=== PATIENT | male | born 1970 | race Caucasian/White ===

== ENCOUNTER 2017-07-20 23:57 | Emergency (ER) | payer SELFPAY ==
[~2017-07-20] VITALS: Ht 180.3 cm; Wt 108.0 kg
[2017-07-21 00:03] VITALS: BP 199/98; PULSE 119; RESP 18; TEMP 99.1; O2SAT 95
--- NOTE | 2017-07-21 00:39 | PD ---
HPI Chief Complaint: Respiratory Symptoms Time Seen by Provider: 00:16 Travel History International Travel<30 days: No Contact w/Intl Traveler<30days: No Traveled to known affect area: No History of Present Illness HPI Patient is a 47-year-old male who was lying in bed tonight suddenly awoke short of breath felt pounding in his chest felt he could not catch his breath heaviness throughout his lungs he used his roommate (who was accompanying him to the ER) Diskus Advair as well as Atrovent pump without relief of his symptoms. Patient is in the ER he is tachycardic to 120 his blood pressure is 195/100 he denies hypertension. He has a history of hyperthyroidism for which he is not taking meds he also reports a history of hypercholesterolemia he has not seen another doctor for this the symptoms began just prior to arrival. PFSH Past Medical History Seizures: Yes Thyroid Disease: Yes (HYPER) Triglycerides - High: Yes Tetanus Vaccination: > 5 Years Influenza Vaccination: No Social History Alcohol Use: No Tobacco Use: No Substance Use: No Allergies-Medications (Allergen,Severity, Reaction): Coded Allergies: No Known Allergies (Unverified , 07/21/17) Reported Meds & Prescriptions Reported Meds & Active Scripts Active Tegretol (Carbamazepine) 200 Mg Tab 200 Mg PO BID Ativan (Lorazepam) 0.5 Mg Tab 0.5 Mg PO Q6H PRN Review of Systems Except as stated in HPI: all other systems reviewed are Neg Physical Exam Narrative GENERAL: Tachycardic awake alert seems slightly anxious slightly tachypnea SKIN: Warm and dry. HEAD: Atraumatic. Normocephalic. EYES: Pupils equal and round. No scleral icterus. No injection or drainage. ENT: No nasal bleeding or discharge. Mucous membranes pink and moist. NECK: Trachea midline. No JVD. CARDIOVASCULAR: Regular rate and rhythm. Tachycardic to a rate of 117 EKG is normal sinus rhythm at a rate of 111 RESPIRATORY: No accessory muscle use. Clear to auscultation. Breath sounds equal bilaterally. GASTROINTESTINAL: Abdomen soft, non-tender, nondistended. Hepatic and splenic margins not palpable. MUSCULOSKELETAL: Extremities without clubbing, cyanosis, or edema. No obvious deformities. NEUROLOGICAL: Awake and alert. No obvious cranial nerve deficits. Motor grossly within normal limits. Five out of 5 muscle strength in the arms and legs. Normal speech. PSYCHIATRIC: Appropriate mood and affect; insight and judgment normal. Data Data Last Documented VS Vital Signs Date Time Temp Pulse Resp B/P (MAP) Pulse Ox O2 Delivery O2 Flow Rate FiO2 07/21/17 02:43 07/21/17 02:23 109 18 94 Room Air 07/21/17 00:55 21 07/21/17 00:03 99.1 Orders Orders Complete Blood Count With Diff (07/21/17 00:34) Comprehensive Metabolic Panel (07/21/17 00:34) Ckmb (Isoenzyme) Profile (07/21/17 00:34) Troponin I (07/21/17 00:34) Lipase (07/21/17 00:34) D-Dimer (07/21/17 00:34) Chest, Pa & Lat (07/21/17 00:34) Lorazepam Inj (Ativan Inj) (07/21/17 00:45) Ipratropium Neb (Atrovent Neb) (07/21/17 00:45) CKMB (07/21/17 00:45) CKMB% (07/21/17 00:45) Ct Pulmonary Angiogram (07/21/17 ) Iohexol 350 Inj (Omnipaque 350 Inj) (07/21/17 02:14) Ed Discharge Order (07/21/17 02:50) Electrocardiogram (07/21/17 00:24) Labs Laboratory Tests Test 07/21/17 00:45 White Blood Count 7.8 TH/MM3 Red Blood Count 4.88 MIL/MM3 Hemoglobin 15.1 GM/DL Hematocrit 43.7 % Mean Corpuscular Volume 89.5 FL Mean Corpuscular Hemoglobin 30.9 PG Mean Corpuscular Hemoglobin Concent 34.5 % Red Cell Distribution Width 13.2 % Platelet Count 244 TH/MM3 Mean Platelet Volume 8.9 FL Neutrophils (%) (Auto) 61.5 % Lymphocytes (%) (Auto) 29.0 % Monocytes (%) (Auto) 7.9 % Eosinophils (%) (Auto) 1.4 % Basophils (%) (Auto) 0.2 % Neutrophils # (Auto) 4.8 TH/MM3 Lymphocytes # (Auto) 2.3 TH/MM3 Monocytes # (Auto) 0.6 TH/MM3 Eosinophils # (Auto) 0.1 TH/MM3 Basophils # (Auto) 0.0 TH/MM3 CBC Comment DIFF FINAL Differential Comment D-Dimer Quantitative (PE/DVT) 0.22 MG/L FEU Blood Urea Nitrogen 19 MG/DL Creatinine 1.06 MG/DL Random Glucose 307 MG/DL Total Protein 7.8 GM/DL Albumin 4.0 GM/DL Calcium Level 8.4 MG/DL Alkaline Phosphatase 80 U/L Aspartate Amino Transf (AST/SGOT) 43 U/L Alanine Aminotransferase (ALT/SGPT) 60 U/L Total Bilirubin 0.5 MG/DL Sodium Level 135 MEQ/L Potassium Level 3.7 MEQ/L Chloride Level 99 MEQ/L Carbon Dioxide Level 26.9 MEQ/L Anion Gap 9 MEQ/L Estimat Glomerular Filtration Rate 74 ML/MIN Total Creatine Kinase 197 U/L Creatine Kinase MB 1.2 NG/ML Troponin I LESS THAN 0.02 NG/ML Lipase 375 U/L [facility] Medical Decision Making Medical Screen Exam Complete: Yes Emergency Medical Condition: Yes Differential Diagnosis Anxiety versus PE versus cardiac ischemia versus pneumonia Narrative Course CTA of chest is negative D dimer=negative EKG is normal sinus rhythm patient is given Ativan and Atrovent to help him breathe better there is no signs of any bronchitis on his CT there is no PE on the CT troponin is negative he is safe for discharge I will write him a prescription for ATIVAN follow-up as an outpatient Diagnosis Primary Impression: Shortness of breath Additional Impression: Anxiety Patient Instructions: General Instructions, Shortness of Breath (ED) Scripts Carbamazepine (Tegretol) 200 Mg Tab 200 MG PO BID, #30 TAB 0 Refills Prov: Will Cornejo MD 07/21/17 Lorazepam (Ativan) 0.5 Mg Tab 0.5 MG PO Q6H Y for ANXIETY AND/OR AGITATION, #15 TAB 0 Refills Prov: Will Cornejo MD 07/21/17 Disposition: DISCHARGE HOME Condition: Good Will Cornejo MD Jul 21, 2017 00:39
[2017-07-21] MEDS ORDERED: RESP: IPRATROPIUM 0.5 MG/2.5 ML NEB NEB ONE (00:45)
[2017-07-21] MEDS ORDERED: LORazepam 2 MG/ML VIAL IV PUSH ONE (00:45)
[2017-07-21 00:54] LABS: AUTOMATED NEUTROPHIL # 4.8 TH/MM3 (1.8-7.7); BASOPHIL % 0.2 % (0.0-2.0); EOSINOPHIL # 0.1 TH/MM3 (0-0.4); EOSINOPHIL % 1.4 % (0.0-4.0); HEMATOCRIT 43.7 % (39.0-51.0); HEMOGLOBIN 15.1 GM/DL (13.0-17.0); LYMPHOCYTE # 2.3 TH/MM3 (1.0-4.8); MEAN CELL VOLUME 89.5 FL (80.0-100.0); MEAN CORPUSCULAR HEMOGLOBIN 30.9 PG (27.0-34.0); MEAN CORPUSCULAR HGB CONC 34.5 % (32.0-36.0); MEAN PLATELET VOLUME 8.9 FL (7.0-11.0); MONO % 7.9 % (0.0-8.0); MONOCYTE # 0.6 TH/MM3 (0-0.9); NEUT % 61.5 % (16.0-70.0); PLATELET COUNT 244 TH/MM3 (150-450); RED BLOOD COUNT 4.88 MIL/MM3 (4.50-5.90); RED CELL DISTRIBUTION WIDTH 13.2 % (11.6-17.2); WHITE BLOOD COUNT 7.8 TH/MM3 (4.0-11.0)
[2017-07-21 00:55] VITALS: O2SAT 95
--- NOTE | 2017-07-21 01:04 | RADRPT ---
EXAM DATE/TIME: 07/21/2017 00:47 [facility] COMPARISON: No previous studies available for comparison. INDICATIONS : Chest pain and shortness of breath MEDICAL HISTORY : Hypercholesterolemia. SURGICAL HISTORY : Rotator cuff ENCOUNTER: Initial ACUITY: 2 days PAIN SCORE: 8/10 LOCATION: Bilateral chest FINDINGS: PA and lateral views of the chest. The lungs are clear. Cardiomediastinal silhouette within normal li mits. No evidence of pleural effusion or pneumothorax. CONCLUSION: No acute cardiopulmonary disease identified. Ortega Magaña MD on July 21, 2017 at 1:01 Board Certified Radiologist. This report was verified electronically.
[2017-07-21 01:25] LABS: ALKALINE PHOSPHATASE 80 U/L (45-117); ALT (GPT) 60 U/L (12-78); AST (GOT) 43 U/L (15-37); BICARBONATE 26.9 MEQ/L (21.0-32.0); BLOOD UREA NITROGEN 19 MG/DL (7-18); CALCIUM 8.4 MG/DL (8.5-10.1); CHLORIDE 99 MEQ/L (98-107); CREATININE 1.06 MG/DL (0.60-1.30); GLOMERULAR FILTRATION RATE 74 ML/MIN (>89); GLUCOSE,RANDOM 307 MG/DL (74-106); LIPASE 375 U/L (73-393); SODIUM (NA) 135 MEQ/L (136-145); TOTAL BILIRUBIN ADULT 0.5 MG/DL (0.2-1.0); TOTAL PROTEIN 7.8 GM/DL (6.4-8.2); TROPONIN I LESS THAN 0.02 NG/ML (0.02-0.05)
[2017-07-21] MEDS ORDERED: IOHEXOL 350 MG/ML 10 ML VIAL (for RAD DIAG) IVCONTRAST ONE (02:14)
[2017-07-21 02:23] VITALS: BP 147/84; PULSE 109; RESP 18; O2SAT 94
--- NOTE | 2017-07-21 02:31 | RADRPT ---
EXAM DATE/TIME: 07/21/2017 02:01 [facility] COMPARISON: No previous studies available for comparison. INDICATIONS : Shortness of breath. IV CONTRAST: 75 cc Omnipaque 350 (iohexol) IV RADIATION DOSE: 10.89 CTDIvol (mGy) MEDICAL HISTORY : Diabetes mellitus type 2. SURGICAL HISTORY : None. ENCOUNTER: Initial ACUITY: 1 day PAIN SCALE: 0/10 LOCATION: chest TECHNIQUE: Volumetric scanning of the chest was performed using a pulmonary embolism protocol MIP images were re constructed. Using automated exposure control and adjustment of the mA and/or kV according to patien t size, radiation dose was kept as low as reasonably achievable to obtain optimal diagnostic quality images. DICOM format image data is available electronically for review and comparison. Follow-up recommendations for detected pulmonary nodules are based at a minimum on nodule size and pa tient risk factors according to Fleischner Society Guidelines. FINDINGS: PULMONARY ARTERIES: No filling defects are seen in the pulmonary arteries through the segmental level. LUNGS: There is no consolidation or pneumothorax . No concerning pulmonary nodule is visualized. PLEURAE: There is no pleural thickening or pleural effusion. MEDIASTINUM: There is good visualization of the great vessels of the middle mediastinum. No evidence of mediastin al or hilar adenopathy/mass. MUSCULOSKELETAL: Within normal limits for patient age. MISCELLANEOUS: The visualized upper abdominal organs demonstrate no acute abnormality. CONCLUSION: No evidence of pulmonary embolus. Lungs are clear. Ortega Magaña MD on July 21, 2017 at 2:20 Board Certified Radiologist. This report was verified electronically.
[2017-07-21] MEDS ORDERED: LORA-392 PO (02:44)
[2017-07-21] MEDS ORDERED: TEGR200T PO (02:49)
--- NOTE | 2017-07-21 13:23 | EKG ---
Date Performed: 07/21/2017 Time Performed: 00:24:06 PTAGE: 47 years EKG: SINUS TACHYCARDIA ABNORMAL RHYTHM ECG NO PREVIOUS TRACING DOCTOR: Mike Monsalve Interpretating Date/Time 07/21/2017 13:22:02
== END 2017-07-21 03:03 | disposition home or self-care (01) ==
LOC: NEPE 23:57
DX: R06.02 Shortness of breath (principal); F41.9 Anxiety disorder, unspecified
CPT/HCPCS: 71046; 71275; 80053; 82550; 82552; 83690; 84484; 85025; 85379; 93005; 94664; 96374; 99285; J2060; J7644; Q9967

== ENCOUNTER 2017-08-01 22:45 | Emergency (ER) | payer SELFPAY ==
[~2017-08-01] VITALS: Ht 180.3 cm; Wt 106.5 kg
[~2017-08-01 22:45] MED LIST: LORA-392 PO; TEGR200T PO
[2017-08-01 22:46] VITALS: BP 204/94; PULSE 126; RESP 20; TEMP 99.8; O2SAT 97
[2017-08-01 23:02] VITALS: BP 197/100; PULSE 117; RESP 20; TEMP 98.4; O2SAT 97
[2017-08-01] MEDS ORDERED: LORazepam 0.5 MG TAB PO ONE (23:30)
[2017-08-01] MEDS ORDERED: METOPROLOL TARTRATE 25 MG TAB PO ONE (23:45)
--- NOTE | 2017-08-01 23:55 | PD ---
HPI Chief Complaint: Respiratory Distress Time Seen by Provider: 23:19 Travel History International Travel<30 days: No Contact w/Intl Traveler<30days: No Traveled to known affect area: No History of Present Illness HPI Patient complained of tachycardia shortness of breath awakening her from sleep .. Patient Was in our ER for the exact same complaint less than a week ago he was treated with Ativan he was given a full cardiac and ulnar workup he had a PE study that showed no PE. He did not follow-up as he has no insurance at this time and he is back with similar complaint I will give him Ativan by mouth in the total by mouth and evaluate labs. Patient denies chest pain shortness of breath. Denies diaphoresis thinks it is could be acid reflux wakes him up in the morning and then he has a stressful reaction and his pressure gets very high. Pressure is 229/110 he has no medical care at this time says he doesn't have the minute money for his medications he's been Tegretol as well as other meds last times in the ER I gave him a prescription for Ativan for the anxiety related to this panic at night as well as Tegretol. He did not follow-up with the [facility] Past Medical History Anxiety: Yes Cardiovascular Problems: Yes (HTN) Hypertension: Yes Respiratory: Yes (hx of SOB) Seizures: Yes Thyroid Disease: Yes (HYPER) Triglycerides - High: Yes Tetanus Vaccination: > 5 Years Influenza Vaccination: No Social History Alcohol Use: No Tobacco Use: No Substance Use: No Allergies-Medications (Allergen,Severity, Reaction): Coded Allergies: No Known Allergies (Unverified , 07/21/17) Reported Meds & Prescriptions Reported Meds & Active Scripts Active Caretouch Bp Monitor (Blood Pressure Test Kit-Large) 1 Each Kit % .XX Clonidine (Clonidine HCl) 0.1 Mg Tab 0.1 Mg PO BID Metoprolol Tartrate 25 Mg Tab 25 Mg PO DAILY Lisinopril 10 Mg Tab 10 Mg PO DAILY Ativan (Lorazepam) 0.5 Mg Tab 0.5 Mg PO Q6H PRN Review of Systems Except as stated in HPI: all other systems reviewed are Neg Cardiovascular: Positive: Palpitations Physical Exam Narrative GENERAL: slightly anxiuos affect SKIN: Warm and dry. HEAD: Atraumatic. Normocephalic. EYES: Pupils equal and round. No scleral icterus. No injection or drainage. ENT: No nasal bleeding or discharge. Mucous membranes pink and moist. NECK: Trachea midline. No JVD. CARDIOVASCULAR: Regular rate and rhythm. 229/100 SBp RESPIRATORY: No accessory muscle use. Clear to auscultation. Breath sounds equal bilaterally. GASTROINTESTINAL: Abdomen soft, non-tender, nondistended. Hepatic and splenic margins not palpable. MUSCULOSKELETAL: Extremities without clubbing, cyanosis, or edema. No obvious deformities. NEUROLOGICAL: Awake and alert. No obvious cranial nerve deficits. Motor grossly within normal limits. Five out of 5 muscle strength in the arms and legs. Normal speech. PSYCHIATRIC: Appropriate mood and affect; insight and judgment normal. Data Data Last Documented VS Vital Signs Date Time Temp Pulse Resp B/P (MAP) Pulse Ox O2 Delivery O2 Flow Rate FiO2 08/02/17 04:52 99 20 95 08/02/17 04:42 Room Air 08/01/17 23:02 98.4 Orders Orders Lorazepam (Ativan) (08/01/17 23:30) Metoprolol Tartrate (Lopressor) (08/01/17 23:45) Lisinopril (Prinivil) (08/02/17 01:30) Clonidine (Catapres) (08/02/17 02:00) Ed Discharge Order (08/02/17 04:55) MDM Medical Decision Making Medical Screen Exam Complete: Yes Emergency Medical Condition: Yes Differential Diagnosis GERD induce panic inducing hypertension versus essential hypertension versus caffeine induced hypertension versus panic attack Narrative Course I did a full workup on this patient less than 2 weeks ago with a PE study as well as troponin serial troponins EKGs I will ruled out all the causes for his symptoms better smell similar and presenting the same way this time I treat his blood pressure only a given metoprolol 25 mg clonidine 0.1 mg and lisinopril 20 and observe him for 4 hours his pressure comes down to 163/80. I discharge him with a blood pressure cuff monitor as well as the same scrips I gave him in the ER metoprolol 25 mg once day lisinopril 10 mg once a day and clonidine 0.1 mg twice a day blood pressure cuff is written as well and told to closely monitor his pressure if it is lower then 110 to hold the metoprolol any problems to return to the ER Diagnosis Primary Impression: Hypertension Qualified Codes: I10 - Essential (primary) hypertension Patient Instructions: Chronic Hypertension (ED), General Instructions Scripts Blood Pressure Test Kit-Large (Glycosantouch Bp Monitor) 1 Each Kit % .XX for Blood Pressure Management, #1 1 Refill Prov: Will Cornejo MD 08/02/17 Clonidine (Clonidine) 0.1 Mg Tab 0.1 MG PO BID for Blood Pressure Management, #60 TAB 0 Refills Prov: Will Cornejo MD 08/02/17 Metoprolol Tartrate (Metoprolol Tartrate) 25 Mg Tab 25 MG PO DAILY, #30 TAB 0 Refills Prov: Will Cornejo MD 08/02/17 Lisinopril (Lisinopril) 10 Mg Tab 10 MG PO DAILY, #30 TAB 0 Refills Prov: Will Cornejo MD 08/02/17 Disposition: 01 DISCHARGE HOME Condition: Good Will Cornejo MD Aug 01, 2017 23:55
[2017-08-01 23:56] VITALS: BP 187/91; PULSE 109; RESP 20; O2SAT 96
[2017-08-02] MEDS ORDERED: LISINOPRIL 20 MG TAB PO ONE (01:30)
[2017-08-02 01:56] VITALS: BP 213/95; PULSE 102; RESP 18; O2SAT 95
[2017-08-02] MEDS ORDERED: cloNIDine HCL 0.1 MG TAB PO ONE (02:00)
[2017-08-02 03:16] VITALS: BP 179/84; PULSE 99; RESP 18; O2SAT 99
[2017-08-02 04:42] VITALS: BP 163/84; PULSE 98; RESP 18; O2SAT 95
[2017-08-02] MEDS ORDERED: LISI10TA3 PO (04:50)
[2017-08-02] MEDS ORDERED: METO25TA3 PO (04:50)
[2017-08-02] MEDS ORDERED: CLON0.1T PO (04:50)
[2017-08-02] MEDS ORDERED: [UNRECOGNIZED DRUG - CODE] (04:53)
== END 2017-08-02 04:52 | disposition home or self-care (01) ==
LOC: NEPC 22:45
DX: I10 Essential (primary) hypertension (principal); R00.0 Tachycardia, unspecified; R06.02 Shortness of breath; F41.9 Anxiety disorder, unspecified; R56.9 Unspecified convulsions; E05.90 Thyrotoxicosis, unspecified without thyrotoxic crisis or storm; Z79.899 Other long term (current) drug therapy
CPT/HCPCS: 99284

== ENCOUNTER 2017-08-28 04:59 | Emergency (ER) | payer SELFPAY ==
[~2017-08-28] VITALS: Ht 182.9 cm; Wt 99.0 kg
[~2017-08-28 04:59] MED LIST changes: +CLON0.1T PO; +LISI10TA3 PO; +METO25TA3 PO; -TEGR200T PO; +[UNRECOGNIZED DRUG - CODE]
[2017-08-28 05:01] VITALS: BP 142/80; PULSE 108; RESP 20; TEMP 98.5; O2SAT 96
[2017-08-28] MEDS ORDERED: ATOR10TA15 PO (05:16)
[2017-08-28] MEDS ORDERED: CARB200T PO (05:16)
[2017-08-28 05:38] VITALS: RESP 20
[2017-08-28 05:45] LABS: AUTOMATED NEUTROPHIL # 6.5 TH/MM3 (1.8-7.7); BASOPHIL % 0.4 % (0.0-2.0); EOSINOPHIL # 0.1 TH/MM3 (0-0.4); EOSINOPHIL % 0.8 % (0.0-4.0); HEMOGLOBIN 16.4 GM/DL (13.0-17.0); LYMPH % 18.3 % (9.0-44.0); LYMPHOCYTE # 1.6 TH/MM3 (1.0-4.8); MEAN CELL VOLUME 88.9 FL (80.0-100.0); MEAN CORPUSCULAR HEMOGLOBIN 31.1 PG (27.0-34.0); MEAN PLATELET VOLUME 8.5 FL (7.0-11.0); MONO % 7.4 % (0.0-8.0); MONOCYTE # 0.7 TH/MM3 (0-0.9); NEUT % 73.1 % (16.0-70.0); PLATELET COUNT 256 TH/MM3 (150-450); RED BLOOD COUNT 5.29 MIL/MM3 (4.50-5.90); RED CELL DISTRIBUTION WIDTH 13.2 % (11.6-17.2); WHITE BLOOD COUNT 8.9 TH/MM3 (4.0-11.0)
[2017-08-28] MEDS ORDERED: SODIUM CHLOR 0.9% 1000 ML INJ 1,000 ML IV ONE (05:45)
[2017-08-28 06:08] LABS: ALBUMIN 4.7 GM/DL (3.4-5.0); ALT (GPT) 72 U/L (12-78); AST (GOT) 27 U/L (15-37); BLOOD UREA NITROGEN 11 MG/DL (7-18); CALCIUM 9.7 MG/DL (8.5-10.1); CHLORIDE 100 MEQ/L (98-107); CREATININE 1.16 MG/DL (0.60-1.30); GLOMERULAR FILTRATION RATE 67 ML/MIN (>89); GLUCOSE,RANDOM 188 MG/DL (74-106); SODIUM (NA) 137 MEQ/L (136-145)
[2017-08-28 06:09] VITALS: BP 149/88; PULSE 106; RESP 20; TEMP 98; O2SAT 96
[2017-08-28 06:17] LABS: ALKALINE PHOSPHATASE 90 U/L (45-117); CARBAMAZEPINE (TEGRETOL) 3.8 MCG/ML (4.0-12.0); PROTHROMBIN TIME - PATIENT 10.2 SEC (9.8-11.6); TOTAL BILIRUBIN ADULT 0.4 MG/DL (0.2-1.0); TOTAL PROTEIN 8.8 GM/DL (6.4-8.2); TROPONIN I LESS THAN 0.02 NG/ML (0.02-0.05)
--- NOTE | 2017-08-28 06:29 | RADRPT ---
EXAM DATE/TIME: 08/28/2017 06:07 [facility] COMPARISON: No previous studies available for comparison. INDICATIONS : Short of breath. MEDICAL HISTORY : Hypercholesterolemia. SURGICAL HISTORY : None. ENCOUNTER: Initial ACUITY: 1 day PAIN SCORE: 0/10 LOCATION: Bilateral chest FINDINGS: A single view of the chest demonstrates the lungs to be symmetrically aerated without evidence of mas s, infiltrate or effusion. The cardiomediastinal contours are unremarkable. Osseous structures are intact. CONCLUSION: No acute disease. Serjio Lucia MD on August 28, 2017 at 6:28 Board Certified Radiologist. This report was verified electronically.
--- NOTE | 2017-08-28 06:59 | PD ---
HPI Chief Complaint: Cardiac Complaint Time Seen by Provider: 05:12 Travel History International Travel<30 days: No Contact w/Intl Traveler<30days: No Traveled to known affect area: No History of Present Illness HPI The patient is a 47 year old male who presents to the [facility] emergency department with a history of developing a sensation of palpitations, heart racing just after eating at midnight today. The patient reports having an associated chest pressure. The patient reports that he has had similar symptoms in the past, however they were attributed in the past to anxiety. He reports that he does not feel anxious at this time. Interestingly, the patient does have a history of hyperthyroid disorder that he has not been treating for the last 3 years up until 3 weeks ago when he restarted methimazole. He had laboratory studies done, however he has not received the results. He is followed at the [facility]. In addition to this, the patient has a history of hypertension. The patient reports that he was recently started on antihypertensive medications, however at the same time he also has gone on a diet and exercise program and has lost 15 pounds. The patient has been seen in the emergency department on 2 occasions related to tachycardia, chest pressure, shortness of breath by Dr. Cornejo. On the initial evaluation the patient underwent a cardiac workup and a CTA to rule out PE. CTA was negative for PE, cardiac enzymes have been normal. Otherwise on review of systems, the patient denies having any known recent fevers, cough or congestion,neck pain, current shortness of breath, abdominal pain, vomiting, diarrhea, urinary symptoms, or neurologic symptoms. [facility] Past Medical History Narrative Medical The patient's past medical history is significant for hyperthyroid disorder, anxiety disorder, hypertension, seizure disorder, hyperlipidemia. On review of the patient's electronic medical record the patient's blood sugar was 307. He denies being made aware of this. Anxiety: Yes Cardiovascular Problems: Yes (HTN) Diminished Hearing: No Hypertension: Yes Respiratory: Yes (hx of SOB) Immunizations Current: Yes Seizures: Yes Thyroid Disease: Yes (HYPER) Triglycerides - High: Yes Tetanus Vaccination: Unknown Influenza Vaccination: No Past Surgical History Narrative Surgical The patient's past surgical history is reportedly none. Social History Alcohol Use: No Tobacco Use: No Substance Use: No Allergies-Medications (Allergen,Severity, Reaction): Coded Allergies: No Known Allergies (Unverified , 07/21/17) Reported Meds & Prescriptions Reported Meds & Active Scripts Active C[place] Bp Monitor (Blood Pressure Test Kit-Large) 1 Each Kit % .XX Clonidine (Clonidine HCl) 0.1 Mg Tab 0.1 Mg PO BID Metoprolol Tartrate 25 Mg Tab 25 Mg PO DAILY Lisinopril 10 Mg Tab 10 Mg PO DAILY Ativan (Lorazepam) 0.5 Mg Tab 0.5 Mg PO Q6H PRN Reported Carbamazepine 200 Mg Tab 200 Mg PO BID Atorvastatin (Atorvastatin Calcium) 10 Mg Tab 10 Mg PO HS Review of Systems Except as stated in HPI: all other systems reviewed are Neg General / Constitutional: No: Fever Eyes: No: Visual changes HENT: No: Headaches Cardiovascular: Positive: Chest Pain or Discomfort, Palpitations, Tachycardia ( Chest pressure) Respiratory: No: Shortness of Breath Gastrointestinal: No: Nausea, Vomiting, Diarrhea, Abdominal Pain Genitourinary: No: Dysuria Musculoskeletal: No: Pain Skin: No Rash Neurologic: No: Weakness, Focal Abnormalities, Change in Mentation, Slurred Speech, Sensory Disturbance Psychiatric: No: Depression Endocrine: No: Polydipsia Hematologic/Lymphatic: No: Easy Bruising Physical Exam Narrative General: The patient is a well-developed well-nourished male, anxious appearing on examination, tachycardic, pressured speech. Head and Neck exam: Head is normocephalic atraumatic. Eyes: EOMI, pupils are equal round and reactive to light. Nose: Midline septum with pink mucous membranes Mouth: Dentition unremarkable. Moist mucus membranes. Posterior oropharynx is not erythematous. No tonsillar hypertrophy. Uvula midline. Airway patent. Neck: No palpable lymphadenopathy. No nuchal rigidity. No thyromegaly. Cardiovascular: Sinus tachycardia in the low 100 without murmurs, gallops, or rubs. No pulse deficit to the extremities on simultaneous auscultation and palpation of his radial artery. Lungs: Clear to auscultation bilaterally. No wheezes, rhonchi, or rales. Abdomen: Soft, without tenderness to palpation in all 4 quadrants of the abdomen. No guarding, rebound, or rigidity. Normal bowel sounds are audible. No tenderness on palpation of McBurney's point. Negative Brewer sign. Extremities: No clubbing, cyanosis, or edema. 2+ pulses in all 4 extremities. No calf tenderness on palpation. Negative Homans sign. No palpable cords. Back: No spinous process tenderness to palpation. No costovertebral angle tenderness to palpation. Neurologic Exam: Grossly nonfocal. Skin Exam: No rash noted. Intact skin that is warm and dry. Data Data Last Documented VS Vital Signs Date Time Temp Pulse Resp B/P (MAP) Pulse Ox O2 Delivery O2 Flow Rate FiO2 08/28/17 06:09 98.0 106 20 149/88 (108) 96 Room Air Orders Orders Electrocardiogram (08/28/17 05:27) Complete Blood Count With Diff (08/28/17 05:27) Comprehensive Metabolic Panel (08/28/17 05:27) Creatine Kinase (Cpk) (08/28/17 05:27) Ckmb (Isoenzyme) Profile (08/28/17 05:27) Troponin I (08/28/17 05:27) Prothrombin Time / Inr (Pt) (08/28/17 05:27) Act Partial Throm Time (Ptt) (08/28/17 05:27) Lipase (08/28/17 05:27) Urinalysis - C+S If Indicated (08/28/17 05:27) Magnesium (Mg) (08/28/17 05:27) Carbamazepine (Tegretol) (08/28/17 05:27) Thyroid Stimulating Hormone (08/28/17 05:27) Chest, Single Ap (08/28/17 05:27) Iv Access Insert/Monitor (08/28/17 05:27) Ecg Monitoring (08/28/17 05:27) Oximetry (08/28/17 05:27) Blood Glucose (08/28/17 05:27) Sodium Chlor 0.9% 1000 Ml Inj (Ns 1000 M (08/28/17 05:45) Labs Laboratory Tests Test 08/28/17 05:35 White Blood Count 8.9 TH/MM3 Red Blood Count 5.29 MIL/MM3 Hemoglobin 16.4 GM/DL Hematocrit 47.0 % Mean Corpuscular Volume 88.9 FL Mean Corpuscular Hemoglobin 31.1 PG Mean Corpuscular Hemoglobin Concent 35.0 % Red Cell Distribution Width 13.2 % Platelet Count 256 TH/MM3 Mean Platelet Volume 8.5 FL Neutrophils (%) (Auto) 73.1 % Lymphocytes (%) (Auto) 18.3 % Monocytes (%) (Auto) 7.4 % Eosinophils (%) (Auto) 0.8 % Basophils (%) (Auto) 0.4 % Neutrophils # (Auto) 6.5 TH/MM3 Lymphocytes # (Auto) 1.6 TH/MM3 Monocytes # (Auto) 0.7 TH/MM3 Eosinophils # (Auto) 0.1 TH/MM3 Basophils # (Auto) 0.0 TH/MM3 CBC Comment DIFF FINAL Differential Comment Prothrombin Time 10.2 SEC Prothromb Time International Ratio 1.0 RATIO Activated Partial Thromboplast Time 33.2 SEC Blood Urea Nitrogen 11 MG/DL Creatinine 1.16 MG/DL Random Glucose 188 MG/DL Total Protein 8.8 GM/DL Albumin 4.7 GM/DL Calcium Level 9.7 MG/DL Magnesium Level 2.0 MG/DL Alkaline Phosphatase 90 U/L Aspartate Amino Transf (AST/SGOT) 27 U/L Alanine Aminotransferase (ALT/SGPT) 72 U/L Total Bilirubin 0.4 MG/DL Sodium Level 137 MEQ/L Potassium Level 3.8 MEQ/L Chloride Level 100 MEQ/L Carbon Dioxide Level 28.0 MEQ/L Anion Gap 9 MEQ/L Estimat Glomerular Filtration Rate 67 ML/MIN Total Creatine Kinase 80 U/L Troponin I LESS THAN 0.02 NG/ML Lipase 430 U/L Thyroid Stimulating Hormone 3rd Gen 1.380 uIU/ML Carbamazepine (Tegretol) Level 3.8 MCG/ML MDM Medical Decision Making Medical Screen Exam Complete: Yes Emergency Medical Condition: Yes Medical Record Reviewed: Yes Differential Diagnosis Hyperthyroidism, versus anxiety disorder, versus pneumonia, versus dehydration from undiagnosed diabetes and hyperglycemia Narrative Course During the course of the patient's emergency department visit, the patient's history, examination, and differential diagnosis were reviewed with the patient. The patient was placed on a branch general manager with oximetry and frequent blood pressure monitoring. The patient had IV access obtained and blood work sent for analysis. The patient's electronic medical record was reviewed and the patient's blood sugar when he was last seen in the emergency department and had laboratory studies done was 307. The patient's blood sugar was taken at this time and was noted to be 193. The patient's symptoms are consistent with the diagnosis of diabetes as he does report having polyuria and polydipsia, however he reports that this is improved since a 15 pound weight loss. The patient currently has a primary care physician at the [facility]. He will follow-up with them regarding this. The patient was initially provided normal saline 1 L IV fluid bolus The patient's laboratory studies were reviewed and remarkable for a white count of 8.9, hemoglobin 16.4, platelets 256 with 73.1 neutrophils, CMP is remarkable for a glucose of 188, cardiac enzymes within normal limits, lipase 430, TSH 1.38 , PT 10.2, PTT 33.2, Tegretol level three-point Radiology studies were reviewed and remarkable for chest x-ray that shows no acute cardiopulmonary disease. The patient reports concern about continuing his antihypertensive medication, the patient was instructed that he should continue his blood pressure medication until he comes up with the plan for discontinuing it after it is closely monitored with his primary care physician. Regarding the patient's hyperglycemia, the patient was instructed that he would meet criteria for diabetes based on his blood sugar of 307 when it was previously evaluated. He will follow-up closely with his primary care physician regarding this. The patient's examination is consistent with anxiety. The patient is on Ativan as needed. He was instructed to continue this. The patient is resting comfortably and feels better, is alert and in no distress. The patient's results and examination findings were discussed with the patient. The repeat examination is unremarkable and benign. The history, exam, diagnostic testing, and current condition do not suggest any significant pathology to warrant further testing, continued ED treatment, admission, or surgical evaluation at this point. The vital signs have been stable. The patient does not have uncontrollable pain, intractable vomiting, or other significant symptoms. The patient's condition is stable and appropriate for discharge. The patient will pursue further outpatient evaluation with a primary care physician or other designated or consulting physician as indicated in the discharge instructions. The patient expressed understanding and was agreeable with this plan. Diagnosis Primary Impression: Palpitations Additional Impression: Diabetes mellitus Qualified Codes: E11.65 - Type 2 diabetes mellitus with hyperglycemia Referrals: [facility] 2 days Patient Instructions: Diabetic Hyperglycemia (ED), General Instructions, Heart Palpitations (ED) Med/Other Pt SpecificInfo: No Change to Meds Disposition: 01 DISCHARGE HOME Condition: Stable Charla Love MD Aug 28, 2017 06:59
[2017-08-28 07:29] VITALS: BP 124/76; PULSE 107; RESP 20; O2SAT 100
--- NOTE | 2017-08-28 19:17 | EKG ---
Date Performed: 08/28/2017 Time Performed: 05:17:17 PTAGE: 47 years EKG: SINUS TACHYCARDIA ABNORMAL RHYTHM ECG Since the prior tracing, there has been no significan t change PREVIOUS TRACING : 07/21/2017 00.24 DOCTOR: Bryce Cruz Interpretating Date/Time 08/28/2017 19:14:59
== END 2017-08-28 08:21 | disposition home or self-care (01) ==
LOC: NEPC 04:59
DX: R00.2 Palpitations (principal); E11.65 Type 2 diabetes mellitus with hyperglycemia; E05.90 Thyrotoxicosis, unspecified without thyrotoxic crisis or storm; E78.5 Hyperlipidemia, unspecified; E78.00 Pure hypercholesterolemia, unspecified; I10 Essential (primary) hypertension; F41.9 Anxiety disorder, unspecified; G40.909 Epilepsy, unspecified, not intractable, without status epilepticus; Z79.899 Other long term (current) drug therapy
CPT/HCPCS: 71045; 80053; 80156; 82550; 83690; 83735; 84443; 84484; 85025; 85610; 85730; 93005; 96360; 99285; J7030

== ENCOUNTER 2017-09-04 06:54 | Observation (INO) | payer SELFPAY ==
[~2017-09-04] VITALS: Ht 180.3 cm; Wt 93.0 kg
[2017-09-04] VITALS (7 sets, daily range): BP systolic 123–179; BP diastolic 58–83; PULSE 90–128; RESP 16–18; TEMP 98.3; O2SAT 97–99
[~2017-09-04 06:54] MED LIST changes: +ATOR10TA15 PO; +CARB200T PO
[2017-09-04] MEDS ORDERED: [UNRECOGNIZED DRUG - OTHER] PO (07:07)
[2017-09-04] MEDS ORDERED: METF1000 PO (07:07)
[2017-09-04] MEDS ORDERED: BUSP5TAB PO (07:07)
[2017-09-04] MEDS ORDERED: METHI10 PO (07:07)
[2017-09-04] MEDS ORDERED: ASPIRIN 325 MG TAB PO ONE (07:30)
[2017-09-04] MEDS ORDERED: SODIUM CHLORID 0.9% 500 ML INJ 500 ML IV ONE (07:30)
[2017-09-04] MEDS ORDERED: SODIUM CHLORIDE 0.9% FLUSH 10 ML FLUSH IVF PRN (07:30)
[2017-09-04] MEDS ORDERED: NITROGLYCERIN 0.4 MG SL 25 TABS/BTL SL ONE (07:30)
[2017-09-04 07:38] LABS: AUTOMATED NEUTROPHIL # 6.8 TH/MM3 (1.8-7.7); BASOPHIL # 0.1 TH/MM3 (0-0.2); BASOPHIL % 0.5 % (0.0-2.0); EOSINOPHIL # 0.1 TH/MM3 (0-0.4); EOSINOPHIL % 0.7 % (0.0-4.0); HEMATOCRIT 44.7 % (39.0-51.0); HEMOGLOBIN 15.6 GM/DL (13.0-17.0); LYMPH % 28.9 % (9.0-44.0); LYMPHOCYTE # 3.2 TH/MM3 (1.0-4.8); MEAN CORPUSCULAR HEMOGLOBIN 30.8 PG (27.0-34.0); MEAN PLATELET VOLUME 9.2 FL (7.0-11.0); MONO % 8.5 % (0.0-8.0); MONOCYTE # 0.9 TH/MM3 (0-0.9); NEUT % 61.4 % (16.0-70.0); PLATELET COUNT 305 TH/MM3 (150-450); RED BLOOD COUNT 5.08 MIL/MM3 (4.50-5.90)
--- NOTE | 2017-09-04 07:42 | RADRPT ---
EXAM DATE/TIME: 09/04/2017 07:27 [facility] COMPARISON: CHEST SINGLE AP, August 28, 2017, 6:07. INDICATIONS : Left side chest pains with left arm pain x3 days. MEDICAL HISTORY : Diabetes mellitus type I. SURGICAL HISTORY : None. ENCOUNTER: Initial ACUITY: 3 days PAIN SCORE: 3/10 LOCATION: Left chest FINDINGS: A single view of the chest demonstrates the lungs to be symmetrically aerated without evidence of mas s, infiltrate or effusion. The cardiomediastinal contours are unremarkable. Osseous structures are intact. CONCLUSION: 1. No acute cardiopulmonary disease. Alfredo Rogel MD on September 04, 2017 at 7:40 Board Certified Radiologist. This report was verified electronically.
[2017-09-04 07:50] LABS: INTERNATIONAL NORMALIZED RATIO 1.1 RATIO; PROTHROMBIN TIME - PATIENT 11.1 SEC (9.8-11.6)
[2017-09-04 07:53] LABS: ALT (GPT) 67 U/L (12-78)
[2017-09-04 07:54] LABS: ALBUMIN 4.5 GM/DL (3.4-5.0); AST (GOT) 38 U/L (15-37); BICARBONATE 23.5 MEQ/L (21.0-32.0); BLOOD UREA NITROGEN 11 MG/DL (7-18); CALCIUM 9.6 MG/DL (8.5-10.1); CHLORIDE 100 MEQ/L (98-107); CREATININE 1.13 MG/DL (0.60-1.30); GLOMERULAR FILTRATION RATE 69 ML/MIN (>89); GLUCOSE,RANDOM 112 MG/DL (74-106); SODIUM (NA) 136 MEQ/L (136-145)
[2017-09-04 07:58] LABS: ALKALINE PHOSPHATASE 92 U/L (45-117); TOTAL BILIRUBIN ADULT 0.5 MG/DL (0.2-1.0); TOTAL PROTEIN 8.6 GM/DL (6.4-8.2); TROPONIN I LESS THAN 0.02 NG/ML (0.02-0.05)
--- NOTE | 2017-09-04 08:20 | PD ---
HPI Chief Complaint: Chest Pain Time Seen by Provider: 07:18 Travel History International Travel<30 days: No Contact w/Intl Traveler<30days: No Traveled to known affect area: No History of Present Illness HPI 47-year-old male presents with chest pain over the past couple of days. He states that he is also feeling palpitations. He states he was given prescriptions to be placed back on his medications a month ago but he did not start them until 1 week ago. He states those were lisinopril and metoprolol. He states also over the past 4 days to lose weight he has been only drinking water. He states he is not having any other concurrent complaints at this time. He denies taking an aspirin. He states he has not had a stress test or heart workup that he recalls. He denies following with a intensive care medicine specialist. He denies modifying factors. Quality is pressure. Severity is moderate. He denies migration of the pain. Patient is a poor historian which limits history. PFSH Past Medical History Anxiety: Yes Cardiovascular Problems: Yes (HTN) Diabetes: Yes Patient Takes Glucophage: Yes Diminished Hearing: No Hypertension: Yes Respiratory: Yes (hx of SOB) Immunizations Current: Yes Seizures: Yes Thyroid Disease: Yes Triglycerides - High: Yes Influenza Vaccination: No Social History Alcohol Use: No Tobacco Use: No Substance Use: No Allergies-Medications (Allergen,Severity, Reaction): Coded Allergies: No Known Allergies (Unverified , 09/04/17) Reported Meds & Prescriptions Reported Meds & Active Scripts Active Metoprolol Tartrate 25 Mg Tab 25 Mg PO DAILY Lisinopril 10 Mg Tab 10 Mg PO DAILY Reported Buspirone (Buspirone HCl) 5 Mg Tab 5 Mg PO BID PRN l-Threonine (Threonine) 500 Mg Tab 100 Mg PO DAILY Metformin (Metformin HCl) 1,000 Mg Tab 1,000 Mg PO BIDPC Methimazole 10 Mg Tab 10 Mg PO DAILY Carbamazepine 200 Mg Tab 200 Mg PO BID Atorvastatin (Atorvastatin Calcium) 10 Mg Tab 10 Mg PO HS Review of Systems Except as stated in HPI: all other systems reviewed are Neg Physical Exam Narrative GENERAL: Anxious 47-year-old male SKIN: Focused skin assessment warm/dry. HEAD: Atraumatic. Normocephalic. EYES: Pupils equal and round. No scleral icterus. No injection or drainage. ENT: No nasal bleeding or discharge. Mucous membranes pink and moist. NECK: Trachea midline. No JVD. CARDIOVASCULAR: Regular rate and rhythm. RESPIRATORY: No accessory muscle use. Clear to auscultation. Breath sounds equal bilaterally. GASTROINTESTINAL: Abdomen soft, non-tender, nondistended. MUSCULOSKELETAL: No obvious deformities. No clubbing. No cyanosis. No edema. NEUROLOGICAL: Awake and alert. Motor grossly within normal limits. Normal speech. Data Data Last Documented VS Vital Signs Date Time Temp Pulse Resp B/P (MAP) Pulse Ox O2 Delivery O2 Flow Rate FiO2 09/04/17 07:48 108 134/63 (86) 123/58 (79) 09/04/17 07:47 17 98 Room Air Orders Orders Electrocardiogram (09/04/17 07:18) Ckmb (Isoenzyme) Profile (09/04/17 07:18) Complete Blood Count With Diff (09/04/17 07:18) Comprehensive Metabolic Panel (09/04/17 07:18) Magnesium (Mg) (09/04/17 07:18) Prothrombin Time / Inr (Pt) (09/04/17 07:18) Act Partial Throm Time (Ptt) (09/04/17 07:18) Troponin I (09/04/17 07:18) Lipase (09/04/17 07:18) Chest, Single Ap (09/04/17 07:18) Ecg Monitoring (09/04/17 07:18) Bilateral Bp Monitoring (09/04/17 07:18) Iv Access Insert/Monitor (09/04/17 07:18) Oximetry (09/04/17 07:18) Aspirin (Aspirin) (09/04/17 07:30) Sodium Chloride 0.9% Flush (Ns Flush) (09/04/17 07:30) Nitroglycerin Sl (Nitrostat Sl) (09/04/17 07:30) Sodium Chlorid 0.9% 500 Ml Inj (Ns 500 M (09/04/17 07:30) CKMB (09/04/17 07:15) CKMB% (09/04/17 07:15) Ct Abd/Pel W Iv Contrast(Rout) (09/04/17 ) Iohexol 350 Inj (Omnipaque 350 Inj) (09/04/17 09:21) Admit Order (Ed Use Only) (09/04/17 09:56) Labs Laboratory Tests Test 09/04/17 07:15 White Blood Count 11.0 TH/MM3 Red Blood Count 5.08 MIL/MM3 Hemoglobin 15.6 GM/DL Hematocrit 44.7 % Mean Corpuscular Volume 88.0 FL Mean Corpuscular Hemoglobin 30.8 PG Mean Corpuscular Hemoglobin Concent 35.0 % Red Cell Distribution Width 13.0 % Platelet Count 305 TH/MM3 Mean Platelet Volume 9.2 FL Neutrophils (%) (Auto) 61.4 % Lymphocytes (%) (Auto) 28.9 % Monocytes (%) (Auto) 8.5 % Eosinophils (%) (Auto) 0.7 % Basophils (%) (Auto) 0.5 % Neutrophils # (Auto) 6.8 TH/MM3 Lymphocytes # (Auto) 3.2 TH/MM3 Monocytes # (Auto) 0.9 TH/MM3 Eosinophils # (Auto) 0.1 TH/MM3 Basophils # (Auto) 0.1 TH/MM3 CBC Comment DIFF FINAL Differential Comment Prothrombin Time 11.1 SEC Prothromb Time International Ratio 1.1 RATIO Activated Partial Thromboplast Time 32.8 SEC Blood Urea Nitrogen 11 MG/DL Creatinine 1.13 MG/DL Random Glucose 112 MG/DL Total Protein 8.6 GM/DL Albumin 4.5 GM/DL Calcium Level 9.6 MG/DL Magnesium Level 2.0 MG/DL Alkaline Phosphatase 92 U/L Aspartate Amino Transf (AST/SGOT) 38 U/L Alanine Aminotransferase (ALT/SGPT) 67 U/L Total Bilirubin 0.5 MG/DL Sodium Level 136 MEQ/L Potassium Level 3.7 MEQ/L Chloride Level 100 MEQ/L Carbon Dioxide Level 23.5 MEQ/L Anion Gap 13 MEQ/L Estimat Glomerular Filtration Rate 69 ML/MIN Total Creatine Kinase 135 U/L Creatine Kinase MB 1.2 NG/ML Troponin I LESS THAN 0.02 NG/ML Lipase 592 U/L MDM Medical Decision Making Medical Screen Exam Complete: Yes Emergency Medical Condition: Yes Medical Record Reviewed: Yes (Past history confirmed) Interpretation(s) CBC & BMP Diagram 09/04/17 07:15 Total Protein 8.6 H, Albumin 4.5, Calcium Level 9.6, Magnesium Level 2.0, Alkaline Phosphatase 92, Aspartate Amino Transf (AST/SGOT) 38 H, Alanine Aminotransferase (ALT/SGPT) 67, Total Bilirubin 0.5 Last 24 hours Impressions Chest X-Ray 09/04/17 0718 Signed Impressions: Service Date/Time: Monday, September 04, 2017 07:27 - CONCLUSION: 1. No acute cardiopulmonary disease. Alfredo Rogel MD Abdomen/Pelvis CT 09/04/17 0000 Signed Impressions: Service Date/Time: Monday, September 04, 2017 09:12 - CONCLUSION: Negative CT abdomen/pelvis with contrast. Hugh Newton MD Differential Diagnosis [place], gastritis, anxiety, musculoskeletal Narrative Course We will check blood work, chest x-ray, EKG and dose with aspirin and nitroglycerin and reevaluate. given mild elevation in lipase will check ct abdomen and reassess patient updated and agrees to control clerk auditing observation given risk factors Diagnosis Primary Impression: Chest pain Qualified Codes: R07.9 - Chest pain, unspecified Ronel Dixon MD Sep 04, 2017 08:20
[2017-09-04] MEDS ORDERED: IOHEXOL 350 MG/ML 10 ML VIAL (for RAD DIAG) IVCONTRAST ONE (09:21)
--- NOTE | 2017-09-04 09:41 | RADRPT ---
EXAM DATE/TIME: 09/04/2017 09:12 [facility] COMPARISON: No previous studies available for comparison. INDICATIONS : Abdominal pain IV CONTRAST: 85 cc Omnipaque 350 (iohexol) IV ORAL CONTRAST: No oral contrast ingested. RADIATION DOSE: 13.02 CTDIvol (mGy) MEDICAL HISTORY : Seizures. Hypertension. diabetes SURGICAL HISTORY : None. ENCOUNTER: Initial ACUITY: 1 day PAIN SCALE: 2/10 LOCATION: Abdomen TECHNIQUE: Volumetric scanning of the abdomen and pelvis was performed. Using automated exposure control and ad justment of the mA and/or kV according to patient size, radiation dose was kept as low as reasonably achievable to obtain optimal diagnostic quality images. DICOM format image data is available electro nically for review and comparison. FINDINGS: LOWER LUNGS: The visualized lower lungs are clear. LIVER: Homogeneous density without lesion. There is no dilation of the biliary tree. No calcified gallston es. SPLEEN: Normal size without lesion. PANCREAS: Within normal limits. KIDNEYS: Normal in size and shape. There is no mass, stone or hydronephrosis. ADRENAL GLANDS: Symmetric appearance with mild thickening of the medial and on both sides. No nodules seen. VASCULAR: There is no aortic aneurysm. BOWEL/MESENTERY: There are no dilated loops of small or large bowel. The appendix is identified in the right lower qu adrant and has a normal appearance. ABDOMINAL WALL: Within normal limits. RETROPERITONEUM: There is no lymphadenopathy. BLADDER: No wall thickening or mass. REPRODUCTIVE: Within normal limits. INGUINAL: There is no lymphadenopathy or hernia. MUSCULOSKELETAL: Within normal limits for patient age. CONCLUSION: Negative CT abdomen/pelvis with contrast. Hugh Newton MD on September 04, 2017 at 9:31 Board Certified Radiologist. This report was verified electronically.
[2017-09-04] MEDS ORDERED: ACETAMINOPHEN/HYDROcodone 325 MG/7.5 MG TAB PO PRN (10:45)
[2017-09-04] MEDS ORDERED: ONDANSETRON HCL 4 MG/2 ML VIAL IV PUSH PRN (10:45)
[2017-09-04] MEDS ORDERED: PANTOPRAZOLE SOD 40 MG DELAYED RELEASE TAB PO SCH (10:45)
[2017-09-04] MEDS ORDERED: ACETAMINOPHEN 500 MG CPLT PO PRN (10:45)
[2017-09-04] MEDS ORDERED: ALPRAZolam 0.25 MG TAB PO PRN (10:45)
[2017-09-04] MEDS ORDERED: METHIMAZOLE 10 MG TAB PO SCH (11:00)
[2017-09-04] MEDS ORDERED: LISINOPRIL 10 MG TAB PO SCH (11:00)
[2017-09-04] MEDS ORDERED: carBAMazepine 200 MG TAB PO SCH (11:00)
[2017-09-04] MEDS ORDERED: busPIRone HCL 5 MG TAB PO PRN (11:00)
[2017-09-04 11:23] LABS: CHOLESTEROL/ HDL RATIO 5.45 RATIO; HDL CHOLESTEROL 29.5 MG/DL (40.0-60.0)
[2017-09-04 11:28] LABS: TROPONIN I LESS THAN 0.02 NG/ML (0.02-0.05)
--- NOTE | 2017-09-04 13:13 | HHI.HP ---
HPI Primary Care Physician Unknown Chief Complaint Chest pain History of Present Illness This is a 47-year-old male with history of diabetes, hypertension, hyperlipidemia, hyperthyroidism, and Agoraphobia that presents to ED with the complaint of chest discomfort and elevated heart rate. Patient states he has not been on medications for years for his mentioned diagnosis'but began taking about 2 weeks ago. Was able to establish with a local PCP, states he is seeing Dr. Cooper. States that he was checking his vital signs with a blood pressure cuff this morning about 645 and found his heart rate to be in the 140s and blood pressure elevated at 137/83. Soon afterwards he developed a left-sided dull discomfort in the chest that lasted about 3 and half hours. Currently not present. Denied shortness of breath, nausea, or diaphoresis. States that he is always had a baseline elevated heart rate at about 100 but it has been worse recently. Cannot recall prior stress testing. Denies recent illness. Denies fevers or chills. Review of Systems General: Patient denies fevers, chills, and recent travel. HEENT: Patient denies headache, sore throat, difficulty swallowing. Cardiovascular: Has the chest discomfort as mentioned above. Has felt as if his heart was beating fast but not irregular. No syncope. Denies diaphoresis. Respiratory: Denies shortness of breath or inspirational chest discomfort. Denies coughing wheezing or hemoptysis. GI: Patient denies nausea, vomiting, diarrhea, abdominal pain, bloody stools. Musculoskeletal: Patient denies joint pain or edema. Denies calf pain or edema. Neurovascular: Patient denies numbness, tingling, weakness in extremities. Denies headache. Endocrine: Denies polyuria and polydipsia. Hematologic: Denies easy bruising. Skin: Denies rash or itching. Past Family Social History Allergies: Coded Allergies: No Known Allergies (Unverified , 09/04/17) Past Medical History Diabetes, hypertension, hyperlipidemia, hypothyroidism, and states that he has agoraphobia. Denies known CAD. Past Surgical History Noncontributory. Reported Medications Reported Meds & Active Scripts Active Metoprolol Tartrate 25 Mg Tab 25 Mg PO DAILY Lisinopril 10 Mg Tab 10 Mg PO DAILY Reported Buspirone (Buspirone HCl) 5 Mg Tab 5 Mg PO BID PRN l-Threonine (Threonine) 500 Mg Tab 100 Mg PO DAILY Metformin (Metformin HCl) 1,000 Mg Tab 1,000 Mg PO BIDPC Methimazole 10 Mg Tab 10 Mg PO DAILY Carbamazepine 200 Mg Tab 200 Mg PO BID Atorvastatin (Atorvastatin Calcium) 10 Mg Tab 10 Mg PO HS Active Ordered Medications Current Medications Medications (Trade) Dose Ordered Sig/Chuck Route Start Time Stop Time Status Last Admin (NS Flush) 2 ml UNSCH PRN IVF 09/04/17 07:30 09/04/17 07:45 (Tylenol) 500 mg Q4H PRN PO 09/04/17 10:45 ([place] 7.5-325 Mg) 1 tab Q4H PRN PO 09/04/17 10:45 (Zofran Inj) 4 mg Q6H PRN IV PUSH 09/04/17 10:45 (Protonix) 40 mg DAILY PO 09/04/17 10:45 (Aspirin) 325 mg DAILY PO 09/05/17 09:00 (Xanax) 0.25 mg Q8H PRN PO 09/04/17 10:45 (Lipitor) 10 mg HS PO 09/04/17 21:00 (Buspar) 5 mg BID PRN PO 09/04/17 11:00 (TEGretol) 200 mg BID PO 09/04/17 11:00 (Prinivil) 10 mg DAILY PO 09/04/17 11:00 (Tapazole) 10 mg DAILY PO 09/04/17 11:00 Family History Family medical history is unknown, states he is adopted. Social History Quit smoking about a year ago. Prior to that he smoked about one half pack of cigarettes daily for 20 years. Denies alcohol or illicit drugs. Physical Exam Vital Signs Vital Signs Date Time Temp Pulse Resp B/P (MAP) Pulse Ox O2 Delivery O2 Flow Rate FiO2 09/04/17 11:21 98.3 90 16 130/83 (99) 97 09/04/17 11:18 09/04/17 10:49 126 16 147/74 (98) 98 Room Air 09/04/17 09:00 106 18 134/63 (86) 99 Room Air 09/04/17 07:48 108 134/63 (86) 123/58 (79) 09/04/17 07:47 108 17 167/79 (108) 98 Room Air 09/04/17 06:56 128 18 179/82 (114) 98 Physical Exam GENERAL: This is a well-nourished, well-developed patient, in no apparent distress. Patient speaks in clear complete sentences. Patient is pleasant. HEENT: Head is atraumatic and normocephalic. Neck is supple without lymphadenopathy and trachea is midline. No JVD or carotid bruits. CARDIOVASCULAR: Regular rate and rhythm without murmurs, gallops, or rubs. RESPIRATORY: Clear to auscultation. Breath sounds equal bilaterally. No wheezes , rales, or rhonchi. Chest wall is nontender. No use of accessory muscles. GASTROINTESTINAL: Abdomen is nontender, nondistended. Abdomen soft. No obvious pulsatile mass or bruit. No CVA tenderness. Strong femoral pulses bilaterally. Normal bowel sounds in all quadrants. MUSCULOSKELETAL: Patient is moving upper and lower extremities freely. No calf tenderness or edema, no Homans sign. Strong pulses in upper and lower extremities. NEUROLOGICAL: Patient is alert and oriented. Cranial nerves 2-12 are grossly intact. No focal deficits and speech is clear. SKIN: No rash and turgor is normal. Laboratory Laboratory Tests Test 09/04/17 07:15 09/04/17 10:10 White Blood Count 11.0 Red Blood Count 5.08 Hemoglobin 15.6 Hematocrit 44.7 Mean Corpuscular Volume 88.0 Mean Corpuscular Hemoglobin 30.8 Mean Corpuscular Hemoglobin Concent 35.0 Red Cell Distribution Width 13.0 Platelet Count 305 Mean Platelet Volume 9.2 Neutrophils (%) (Auto) 61.4 Lymphocytes (%) (Auto) 28.9 Monocytes (%) (Auto) 8.5 Eosinophils (%) (Auto) 0.7 Basophils (%) (Auto) 0.5 Neutrophils # (Auto) 6.8 Lymphocytes # (Auto) 3.2 Monocytes # (Auto) 0.9 Eosinophils # (Auto) 0.1 Basophils # (Auto) 0.1 CBC Comment DIFF FINAL Differential Comment Prothrombin Time 11.1 Prothromb Time International Ratio 1.1 Activated Partial Thromboplast Time 32.8 Blood Urea Nitrogen 11 Creatinine 1.13 Random Glucose 112 Total Protein 8.6 Albumin 4.5 Calcium Level 9.6 Magnesium Level 2.0 Alkaline Phosphatase 92 Aspartate Amino Transf (AST/SGOT) 38 Alanine Aminotransferase (ALT/SGPT) 67 Total Bilirubin 0.5 Sodium Level 136 Potassium Level 3.7 Chloride Level 100 Carbon Dioxide Level 23.5 Anion Gap 13 Estimat Glomerular Filtration Rate 69 Total Creatine Kinase 135 124 Creatine Kinase MB 1.2 1.0 Troponin I LESS THAN 0.02 LESS THAN 0.02 Lipase 592 Triglycerides Level 136 Cholesterol Level 161 LDL Cholesterol 104 HDL Cholesterol 29.5 Cholesterol/HDL Ratio 5.45 Result Diagram: 09/04/1715 09/04/1715 Imaging Last 48 hours Impressions Chest X-Ray 09/04/1718 Signed Impressions: Service Date/Time: Monday, September 04, 2017 07:27 - CONCLUSION: 1. No acute cardiopulmonary disease. Alfredo Rogel MD Abdomen/Pelvis CT 09/04/17 0000 Signed Impressions: Service Date/Time: Monday, September 04, 2017 09:12 - CONCLUSION: Negative CT abdomen/pelvis with contrast. Hugh Newton MD Course Initial EKG sinus rhythm rate of [address] segment depressions or elevations. Caprini VTE Risk Assessment Caprini VTE Risk Assessment: No/Low Risk (score <= 1) Caprini Risk Assessment Model Point Value = 1 Point Value = 2 Point Value = 3 Point Value = 5 Age 41-60 Minor surgery BMI > 25 kg/m2 Swollen legs Varicose veins or History of unexplained or recurrent spontaneous Oral contraceptives or hormone replacement Sepsis (< 1 month) Serious lung disease, including pneumonia (< 1 month) Abnormal pulmonary function Acute myocardial infarction Congestive heart failure (< 1 month) History of inflammatory bowel disease Medical patient at bed rest Age 61-74 Arthroscopic surgery Major open surgery (> 45 min) Laparoscopic surgery (> 45 min) Malignancy Confined to bed (> 72 hours) Immobilizing plaster cast Central venous access Age >= 75 History of VTE Family history of VTE Factor V Leiden Prothrombin [id number] Lupus anticoagulant Anticardiolipin antibodies Elevated serum homocysteine Heparin-induced thrombocytopenia Other congenital or acquired thrombophilia Stroke (< 1 month) Elective arthroplasty Hip, pelvis, or leg fracture Acute spinal cord injury (< 1 month) Prophylaxis Regimen Total Risk Factor Score Risk Level Prophylaxis Regimen 0-1 Low Early ambulation 2 Moderate Order ONE of the following: *Sequential Compression Device (SCD) *Heparin 5000 units SQ BID 3-4 Higher Order ONE of the following medications: *Heparin 5000 units SQ TID *Enoxaparin/Lovenox 40 mg SQ daily (WT < 150 kg, CrCl > 30 mL/min) *Enoxaparin/Lovenox 30 mg SQ daily (WT < 150 kg, CrCl > 10-29 mL/min) *Enoxaparin/Lovenox 30 mg SQ BID (WT < 150 kg, CrCl > 30 mL/min) AND/OR *Sequential Compression Device (SCD) 5 or more Highest Order ONE of the following medications: *Heparin 5000 units SQ TID (Preferred with Epidurals) *Enoxaparin/Lovenox 40 mg SQ daily (WT < 150 kg, CrCl > 30 mL/min) *Enoxaparin/Lovenox 30 mg SQ daily (WT < 150 kg, CrCl > 10-29 mL/min) *Enoxaparin/Lovenox 30 mg SQ BID (WT < 150 kg, CrCl > 30 mL/min) AND *Sequential Compression Device (SCD) Assessment and Plan Assessment and Plan * Chest pain: Patient will continue to have serial cardiac enzymes and EKGs for ruling out purposes. He will be seen by Dr. Huang and have stress testing if he rules out with enzymes. Patient to be discharged home with a stress test as nonischemic with instructions to follow-up with PCP and return to ED for interval issues. * Hypertension: Continue current medications. * Hyperlipidemia: Continue current medication. * Diabetes: Patient will be on sliding scale insulin coverage while in chest pain center. He should follow diabetic diet. Resume medication at discharge. * Hyperthyroid: Patient is to resume his medication. * Elevated lipase: Patient's CT of the abdomen and pelvis was unremarkable by radiology. This has been discussed with the patient. He should have this followed up with his primary care physician Dr. Cooper. Patient is stable at this time. He is agreeable to this plan. Luis Ron Sep 04, 2017 13:13
[2017-09-04 14:48] LABS: TROPONIN I LESS THAN 0.02 NG/ML (0.02-0.05)
[2017-09-04] MEDS ORDERED: METOPROLOL TARTRATE 25 MG TAB PO SCH (16:15)
--- NOTE | 2017-09-04 17:00 | EKG ---
Date Performed: 09/04/2017 Time Performed: 06:56:45 PTAGE: 47 years EKG: SINUS TACHYCARDIA ABNORMAL RHYTHM ECG Since PREVIOUS TRACING , now tachycardic PREVIOUS TRACIN08/28/2017 05.17 DOCTOR: Claudia Huang Interpretating Date/Time 09/04/2017 17:00:09
--- NOTE | 2017-09-04 17:04 | EKG ---
Date Performed: 09/04/2017 Time Performed: 10:05:58 PTAGE: 47 years EKG: Sinus rhythm NORMAL ECG Since PREVIOUS TRACING , no longer tachycardic PREVIOUS TRACIN09/04/2017 06.56 DOCTOR: Claudia Huang Interpretating Date/Time 09/04/2017 17:03:17
--- NOTE | 2017-09-04 17:06 | TR ---
Date Performed: 09/04/2017 Time Performed: 15:40:49 DOCTOR: Claudia Huang DRUG LIST: CLINICAL HISTORY: CHEST PAIN REASON FOR TEST: Chest pain REASON FOR ENDING: OBSERVATION: CONCLUSION: JENNY PROTOCOL. NO CP. TEST STOPPED AFTER EXCEEDING GOAL HR SECONDARY TO SOB AND LE G FATIGUE.Maximum BB=408 % Max HR Achieved=90.0% Maximum LN=771/82 Total Exercise Time=6:14 COMMENTS: No ischemia in ETT
--- NOTE | 2017-09-04 17:06 | EKG ---
Date Performed: 09/04/2017 Time Performed: 13:07:10 PTAGE: 47 years EKG: Sinus rhythm NORMAL ECG Since PREVIOUS TRACING , no significant change noted PREVIOUS TRACIN09/04/2017 10.05 DOCTOR: Claudia Huang Interpretating Date/Time 09/04/2017 17:04:32
--- NOTE | 2017-09-04 17:21 | HHI.DCPOC ---
Discharge Care Plan Diagnosis: (1) Chest pain (2) Hypertension (3) Hyperlipidemia (4) DM (diabetes mellitus) (5) Thyroid disease (6) Elevated lipase Goals to Promote Your Health DISCUSS ELEVATED LIPASE WITH YOUR PRIMARY CARE DOCTOR. * To prevent worsening of your condition and complications * To maintain your health at the optimal level Directions to Meet Your Goals Take your medications as prescribed Follow your dietary instruction Follow activity as directed Keep your appointments as scheduled Take your immunizations and boosters as scheduled If your symptoms worsen call your PCP, if no PCP go to Urgent Care Center or Emergency Room Smoking is Dangerous to Your Health. Avoid second hand smoke Call the 24-hour hour crisis hotline for domestic abuse at Luis Ron Sep 04, 2017 17:21
[2017-09-04] MEDS ORDERED: ATORVASTATIN 10 MG TAB PO SCH (21:00)
[2017-09-05] MEDS ORDERED: ASPIRIN 325 MG TAB PO SCH (09:00)
== END 2017-09-04 19:09 | disposition home or self-care (01) ==
LOC: NEPE 06:54 → NEDA 09:57 → NEPHCDU 11:13
PROVIDERS: ADMIT Internal Medicine Interventional Cardiology; ATTEND Internal Medicine Interventional Cardiology
DX: R07.9 Chest pain, unspecified (principal); I10 Essential (primary) hypertension; E78.5 Hyperlipidemia, unspecified; E11.9 Type 2 diabetes mellitus without complications; R74.8 Abnormal levels of other serum enzymes; E05.90 Thyrotoxicosis, unspecified without thyrotoxic crisis or storm; R00.2 Palpitations; F41.9 Anxiety disorder, unspecified; R06.02 Shortness of breath; Z79.84 Long term (current) use of oral hypoglycemic drugs; F40.00 Agoraphobia, unspecified; Z87.891 Personal history of nicotine dependence; M79.602 Pain in left arm; R94.31 Abnormal electrocardiogram [ECG] [EKG]; R00.0 Tachycardia, unspecified
CPT/HCPCS: 71045; 74177; 80053; 80061; 82550; 82552; 83690; 83735; 84484; 85025; 85610; 85730; 93005; 93017; 96360; 96361; 99285; G0378; J7040; Q9967

== ENCOUNTER 2017-09-06 18:18 | Emergency (ER) | payer SELFPAY ==
[~2017-09-06] VITALS: Ht 180.3 cm; Wt 90.0 kg
[~2017-09-06 18:18] MED LIST changes: +BUSP5TAB PO; -CLON0.1T PO; -LORA-392 PO; +METF1000 PO; +METHI10 PO; -[UNRECOGNIZED DRUG - CODE]; +[UNRECOGNIZED DRUG - OTHER] PO
[2017-09-06 18:20] VITALS: BP 134/82; PULSE 101; RESP 14; TEMP 98.8; O2SAT 9; O2SAT 99
[2017-09-06] MEDS ORDERED: PERI0.126 SWISH-SPIT (19:40)
[2017-09-06] MEDS ORDERED: CLIN300C5 PO (19:40)
[2017-09-06] MEDS ORDERED: IBUP-232 PO (19:40)
--- NOTE | 2017-09-06 19:41 | PD ---
HPI Chief Complaint: Oral / Dental Pain or Problem Time Seen by Provider: 19:31 Travel History International Travel<30 days: No Contact w/Intl Traveler<30days: No Traveled to known affect area: No History of Present Illness HPI 47-year-old male presents to the emergency department for evaluation of abscess tooth. He states he first noticed it today. He reports throbbing, aching pain. No radiation of the pain. Current pain is 10/10. Exacerbating or alleviating factors. Mild severity. PFSH Past Medical History Anxiety: Yes Cardiac Catheterization: No Cardiovascular Problems: Yes High Cholesterol: Yes Congestive Heart Failure: No Diabetes: Yes Diminished Hearing: No Hypertension: Yes Respiratory: Yes (hx of SOB) Immunizations Current: Yes Seizures: Yes Thyroid Disease: Yes Triglycerides - High: Yes Past Surgical History Coronary Artery Bypass Graft: No Social History Alcohol Use: No Tobacco Use: No Substance Use: No Allergies-Medications (Allergen,Severity, Reaction): Coded Allergies: No Known Allergies (Unverified , 09/04/17) Reported Meds & Prescriptions Reported Meds & Active Scripts Active Metoprolol Tartrate 25 Mg Tab 25 Mg PO DAILY Lisinopril 10 Mg Tab 10 Mg PO DAILY Reported Buspirone (Buspirone HCl) 5 Mg Tab 5 Mg PO BID PRN l-Threonine (Threonine) 500 Mg Tab 100 Mg PO DAILY Metformin (Metformin HCl) 1,000 Mg Tab 1,000 Mg PO BIDPC Methimazole 10 Mg Tab 10 Mg PO DAILY Carbamazepine 200 Mg Tab 200 Mg PO BID Atorvastatin (Atorvastatin Calcium) 10 Mg Tab 10 Mg PO HS Review of Systems Except as stated in HPI: all other systems reviewed are Neg Physical Exam Narrative GENERAL: Well-nourished, well-developed male patient, ambulatory. Afebrile. SKIN: Focused skin assessment warm/dry. HEAD: Normocephalic. Atraumatic. No facial swelling. ENT: Mucosa pink and moist. No erythema or exudates. No uvular edema. No uvular , palatal, or tonsillar deviation. Airway patent. Nasal turbinates appear normal without nasal blood, purulent drainage or septal hematoma. Bilateral tympanic membranes are clear without erythema or perforation. Back left lower molar is broken with tenderness to palpation over the gingiva. EYES: No scleral icterus. No injection or drainage. NECK: Supple, trachea midline. No JVD or lymphadenopathy. CARDIOVASCULAR: Regular rate and rhythm without murmurs, gallops, or rubs. RESPIRATORY: Breath sounds equal bilaterally. No accessory muscle use. Lungs sounds are clear to auscultation. MUSCULOSKELETAL: No cyanosis, or edema. Data Data Last Documented VS Vital Signs Date Time Temp Pulse Resp B/P (MAP) Pulse Ox O2 Delivery O2 Flow Rate FiO2 09/06/17 18:20 98.8 101 14 134/82 (99) 99 MDM Medical Decision Making Medical Screen Exam Complete: Yes Emergency Medical Condition: Yes Medical Record Reviewed: Yes Differential Diagnosis Dental abscess versus gingivitis versus dental caries Narrative Course 47-year-old male presents to the emergency department for evaluation of broken tooth and dental abscess. Physical exam is reassuring. Patient will be discharged prescription for clindamycin, Peridex oral solution, ibuprofen. He is encouraged to follow-up with a dentist, which she states he does have an appointment tomorrow. The patient was discharged in stable condition with instructions, including return instructions and follow up instructions. Diagnosis Primary Impression: Dental abscess Referrals: Dentist call for appointment Patient Instructions: Dental Abscess (ED), General Instructions Additional Instructions: Take antibiotic as directed until gone. Take ibuprofen as instructed as needed with food for pain. Use Peridex oral solution as directed. Follow-up with a dentist. Return to the emergency department for any acute worsening of symptoms. Med/Other Pt SpecificInfo: Prescription(s) given Scripts Ibuprofen (Ibuprofen) 600 Mg Tab 600 MG PO TID Y for PAIN SCALE 1 TO 10, #21 TAB 0 Refills Prov: Johanny Larson 09/06/17 Chlorhexidine Gluconate (Mouth) Liq (Peridex Liq) 0.12% Soln 15 ML SWISH-SPIT BID, #473 ML 0 Refills Prov: Johanny Larson 09/06/17 Clindamycin (Clindamycin) 300 Mg Cap 300 MG PO Q6H for Infection for 10 Days, #40 CAP 0 Refills Prov: Johanny Larson 09/06/17 Disposition: 01 DISCHARGE HOME Condition: Stable Johanny Larson Sep 06, 2017 19:41
== END 2017-09-06 19:41 | disposition home or self-care (01) ==
LOC: NEPK 18:18
DX: K04.7 Periapical abscess without sinus (principal); E11.9 Type 2 diabetes mellitus without complications; E78.00 Pure hypercholesterolemia, unspecified; I10 Essential (primary) hypertension; Z79.84 Long term (current) use of oral hypoglycemic drugs
CPT/HCPCS: 99283

== ENCOUNTER 2017-09-07 17:03 | Emergency (ER) | payer SELFPAY ==
[~2017-09-07] VITALS: Ht 180.3 cm; Wt 95.5 kg
[2017-09-07 17:03] VITALS: BP 112/71; PULSE 108; RESP 20; TEMP 98.2; O2SAT 96
[~2017-09-07 17:03] MED LIST changes: +CLIN300C5 PO; +IBUP-232 PO; +PERI0.126 SWISH-SPIT
== END 2017-09-07 17:31 | disposition left against medical advice (07) ==
LOC: NED 17:03
DX: Z00.8 Encounter for other general examination (principal); Z53.21 Procedure and treatment not carried out due to patient leaving prior to being seen by health care provider
CPT/HCPCS: 99281

== ENCOUNTER 2017-09-08 02:42 | Inpatient (IN) | payer SELFPAY ==
[~2017-09-08] VITALS: Ht 180.3 cm; Wt 96.1 kg
[2017-09-08 05:50] VITALS: BP 132/72; PULSE 92; RESP 18; TEMP 97.9; O2SAT 98
[2017-09-08] MEDS ORDERED: ALUMINUM/MAGNESIUM/SIMETH 30 ML CUP PO PRN (06:45)
[2017-09-08] MEDS ORDERED: ACETAMINOPHEN 325 MG TAB PO PRN (06:45)
[2017-09-08] MEDS ORDERED: MAGNESIUM HYDROXIDE SUSP 30 ML CUP PO PRN (06:45)
[2017-09-08] MEDS ORDERED: LORazepam 1 MG TAB PO PRN (06:45)
[2017-09-08] MEDS ORDERED: LORazepam 2 MG/ML VIAL IM PRN (06:45)
--- NOTE | 2017-09-08 14:32 | PD.CONS ---
HPI Service [facility] Consult Requested By Dr. Shelton Reason for Consult Medical management Primary Care Physician Unknown Diagnoses: History of Present Illness 47-year-old male with past medical history significant for diabetes, hypertension, hyperlipidemia, GERD, and hyperthyroidism who was transferred from [facility] under [place] [facility]. Patient reports that he has been noncompliant with his medications in the past however has been taking his medications for the past month. He reports that it is been difficult for him to afford his medications and his brother has been able to help with the cost of these at times. He reports that he was recently told his pancreas enzymes were elevated but is concerned that this could possibly be life -threatening. He goes on to tell me that he will constantly Google everything and worry himself about any kind of symptoms that he could be experiencing. His speech is very fast and seems anxious when he begins to talk about his medical history. He does report he has been trying to eat normal portions as well as lose weight. He tells me that at times this has become somewhat obsessive to the point that he is weighing himself constantly. He denies any fevers, chills, nausea, vomiting, headache or diarrhea. He does endorse some constipation and states that he has not had a bowel movement in the past 2 days. He is also complaining of some left abdominal tenderness but no pain at rest. He also complains of a cough and feeling as if he has mucus in the back of his throat when he lies down. He denies any shortness of breath or productive sputum. He states that cough will resolve soon as he sits up. Review of Systems Except as stated in HPI: all other systems reviewed are Neg Past Family Social History Allergies: Coded Allergies: No Known Allergies (Unverified , 09/06/17) Past Medical History Hypertension Diabetes Hyperlipidemia GERD Hyperthyroidism Past Surgical History Right rotator cuff surgery Reported Medications Reported Meds & Active Scripts Active Ibuprofen 600 Mg Tab 600 Mg PO TID PRN Peridex Liq (Chlorhexidine Gluconate (Mouth) Liq) 0.12% Soln 15 Ml SWISH-SPIT BID Clindamycin (Clindamycin HCl) 300 Mg Cap 300 Mg PO Q6H 10 Days Metoprolol Tartrate 25 Mg Tab 25 Mg PO DAILY Lisinopril 10 Mg Tab 10 Mg PO DAILY Reported Buspirone (Buspirone HCl) 5 Mg Tab 5 Mg PO BID PRN l-Threonine (Threonine) 500 Mg Tab 100 Mg PO DAILY Metformin (Metformin HCl) 1,000 Mg Tab 1,000 Mg PO BIDPC Carbamazepine 200 Mg Tab 200 Mg PO BID Atorvastatin (Atorvastatin Calcium) 10 Mg Tab 10 Mg PO HS Active Ordered Medications Current Medications Medications (Trade) Dose Ordered Sig/Chuck Route Start Time Stop Time Status Last Admin (Milk Of Magnesia Liq) 30 ml DAILY PRN PO 09/08/17 06:45 (Mag-Al Plus Susp Liq) 30 ml Q6H PRN PO 09/08/17 06:45 (Flu (Quadrivalent) Vaccine Inj) 0.5 ml ONCE ONCE IM 09/09/17 10:00 09/09/17 10:01 (Lipitor) 10 mg HS PO 09/08/17 21:00 (TEGretol) 200 mg BID PO 09/08/17 21:00 (Cleocin) 300 mg Q6H PO 09/08/17 15:00 (Motrin) 600 mg TID PRN PO 09/08/17 14:45 (Prinivil) 10 mg DAILY PO 09/09/17 09:00 (Glucophage) 1,000 mg BIDPC PO 09/08/17 18:00 (Lopressor) 25 mg DAILY PO 09/09/17 09:00 (Atarax) 50 mg Q6H PRN PO 09/08/17 14:45 (Desyrel) 50 mg HS PRN PO 09/08/17 21:00 (Remeron) 15 mg HS PO 09/08/17 21:00 (D50w (Vial) Inj) 50 ml UNSCH PRN IV PUSH 09/08/17 14:45 (Glucagon Inj) 1 mg UNSCH PRN OTHER 09/08/17 14:45 (NovoLOG SUPPLEMENTAL SCALE) 1 ACHS SLIDING SCALE SQ 09/08/17 17:00 (Tapazole) 5 mg DAILY PO 09/09/17 09:00 Family History Adopted, does not know biological family history Social History Tobacco: Quit 10 years ago used to smoke half a pack per day for 20 years Alcohol: Socially Illicit drug use: Denies Physical Exam Vital Signs Vital Signs Date Time Temp Pulse Resp B/P (MAP) Pulse Ox O2 Delivery O2 Flow Rate FiO2 09/08/17 05:50 97.9 92 18 132/72 (92) 98 Physical Exam GENERAL: This is a well-nourished, well-developed patient, in no apparent distress. SKIN: No rashes, ecchymoses or lesions. Cool and dry. Pale. HEAD: Atraumatic. Normocephalic. EYES: Pupils equal round and reactive. Extraocular motions intact. No scleral icterus. No injection or drainage. ENT: Nose without bleeding, purulent drainage. Throat without erythema, tonsillar hypertrophy or exudate. Uvula midline. Airway patent. NECK: Trachea midline. No JVD or lymphadenopathy. Supple. CARDIOVASCULAR: Regular rate and rhythm without murmurs, gallops, or rubs. RESPIRATORY: Clear to auscultation. Breath sounds equal bilaterally. No wheezes , rales, or rhonchi. Breathing nonlabored. GASTROINTESTINAL: Abdomen soft, mild tenderness with left mid quadrant palpation , nondistended. No palpable masses. No guarding. Hypoactive bowel sounds. MUSCULOSKELETAL: Extremities without clubbing, cyanosis, or edema. No joint tenderness, effusion, or edema noted. NEUROLOGICAL: Awake and alert. Cranial nerves II through XII intact. Motor and sensory grossly within normal limits. Five out of 5 muscle strength in all muscle groups. Normal speech is fast but clear. Anxious at times during my encounter. Assessment and Plan Assessment and Plan 47-year-old male with past medical history significant for diabetes, hypertension, hyperlipidemia, GERD, and hyperthyroidism who was transferred from [facility] [place] under [place] act. Anxiety/personality disorder -Treatment per psychiatry Hypertension, controlled HLD -Continue lisinopril 10 mg daily and metoprolol tartrate 25 mg daily -Continue monitoring blood pressure and heart rate, adjust medications accordingly -Continue home dose Lipitor 10 mg at bedtime Diabetes mellitus -Patient reports his blood sugars have greatly improved since changing his diet drastically and losing weight. -We will check hemoglobin A1c to assess glycemic control -ADA diet, metformin 1000 mg twice daily, Accu-Cheks with insulin sliding scale before meals at bedtime Hyperthyroidism -TSH recently checked on 08/28/17 was 1.38, normal -Continue methimazole 5 mg daily Abdominal pain -Patient reporting constipation 2 days -P.o. milk of magnesia -We will also check lipase levels, CBC and BMP -Patient recently underwent CT of the abdomen and pelvis with contrast on which was negative. - ? If reports of abdominal pain could be related to anxiety as patient does admit to over worrying about things. DVT prophylaxis-ambulating Discussed with nurse. Thank you very much for this consultation, will continue to follow along. Vladimir Oconnor Sep 08, 2017 14:32
--- NOTE | 2017-09-08 14:43 | HHI.HP ---
Provisional Diagnosis Admission Date Sep 08, 2017 at 06:00 [place] I. 1. Mixed anxiety disorder Rule out anxiety disorder due to thyroid derangement Rule out bipolar disorder, although this seems less likely by history [place] II. 1. 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 Express and informed consent means consent voluntarily given in writing, by a competent person, after sufficient explanation and disclosure of the subject matter involved to enable the person to make a knowing and willful decision without any element of force, fraud, deceit, duress, or other form of constraint or coercion. This person is 18 years of age or older, is not now known to be incompetent to consent to treatment with a guardian advocate, and does not have a health care surrogate or proxy currently making medical treatment decisions. I have found this person to be one of the following: [x] Competent to provide express and informed consent, as defined above, for voluntary admission to this facility and is competent to provide express and informed consent for treatment. He/she has the consistent capacity to make well reasoned, willful, and knowing decisions concerning his or her medical or mental health treatment. The person fully and consistently understands the purpose of the admission for examination/placement and is fully capable of personally exercising all rights assured [place] Incompetent to provide express and informed consent to voluntary admission, and this is incompetent to provide express and informed consent to treatment. The person must be transferred to involuntary status and a petition for a guardian advocate filed with the Circuit Court. [] Refusing to provide express and informed consent to voluntary admission but is competent to provide express and informed consent for treatment. The person must be discharged or transferred to involuntary status. Form shall be completed within 24 hours of a person's arrival at the receiving facility and filed in the clinical record of each person: 1. Admitted on a voluntary basis 2. Permitted to provide express and informed consent to his/her own treatment 3. Allowed to transfer from involuntary to voluntary status 4. Prior to permitting a person to consent to his or her own treatment after having been previously found incompetent to consent to treatment. History of Present Illness Capacity: Has Capacity Psych Chief Complaint: Anxiety HPI Mr. Corrigan is a 47-year-old male with no reported past psychiatric history who presents in transfer from [facility] under a [place] act. Patient presented there per records with complaints of depression and suicidal ideation. Reviewing our electronic medical record, I see no previous psychiatric contact within our system. Patient seen and examined with nurse. Chart reviewed. Case discussed with nursing staff. On my examination today, the patient presents with rapid, circumstantial speech is can be seen in patients with anxiety disorders. He complains of poor concentration and poor sleep secondary to anxious rumination. He admits to fleeting suicidal ideation and endorses ongoing suicidal ideation and declines to contract for safety on the inpatient unit. I have ordered the patient transferred to the higher acuity unit into a camera room for closer monitoring as the patient refuses to contract for safety. He denies any issues with mood per se. Denies any audiovisual hallucinations. I can elicit no delusional beliefs including but not limited to paranoia, ideas of reference or thought insertion/withdrawal. He denies any homicidal ideation. I can elicit no elizabeth jenny hypomanic or manic symptoms presently nor in the past. He denies any obsessions. Denies any compulsions. He exhibits prominent dysfunctional personality traits with features of obsessive- compulsive personality, narcissistic personality and avoidant personality. The remainder of the psychiatric ROS is negative. The patient has no physical complaints presently. Past psychiatric history: The patient denies any history of psychiatric diagnosis. He has only seen psychiatry briefly in the past. He has been under the care of a psychotherapist before, mostly for general counseling. He denies any history of psychiatric admissions. Denies any history of suicide attempts. Family history: The patient is adopted and knows nothing of his biological family psychiatric history. Chemical dependency history: The patient denies any abuse of drugs or alcohol. Social history: The patient is originally from [place]. He is and has a 22-year-old daughter who lives in [place]. He is high school educated and had some college. He previously worked for [employer] for 13 years. He denies any history. Denies any legal history. Denies any access to guns or firearms. Denies any history of physical, verbal or sexual abuse. Review of Systems Except as stated in HPI: all other systems reviewed are Neg Past Family Social History Coded Allergies: No Known Allergies (Unverified , 09/06/17) Past Medical History Patient endorses a history of diabetes, hypertension, hyperlipidemia, costochondritis. Patient also reports a history of seizure disorder although he notes he has not had a seizure and 4-1/2 years. He reports that he was told by his neurologist to take his carbamazepine as needed. Active Scripts Ibuprofen (Ibuprofen) 600 Mg Tab, 600 MG PO TID Y for PAIN SCALE 1 TO 10, #21 TAB 0 Refills Prov:Johanny Larson 09/06/17 Chlorhexidine Gluconate (Mouth) Liq (Peridex Liq) 0.12% Soln, 15 ML SWISH-SPIT BID, #473 ML 0 Refills Prov:Johanny Larson 09/06/17 Clindamycin (Clindamycin) 300 Mg Cap, 300 MG PO Q6H for Infection for 10 Days, # 40 CAP 0 Refills Prov:Johanny Larson 09/06/17 Metoprolol Tartrate (Metoprolol Tartrate) 25 Mg Tab, 25 MG PO DAILY, #30 TAB 0 Refills Prov:Will Cornejo MD 08/02/17 Lisinopril (Lisinopril) 10 Mg Tab, 10 MG PO DAILY, #30 TAB 0 Refills Prov:Will Cornejo MD 08/02/17 Reported Medications Buspirone (Buspirone) 5 Mg Tab, 5 MG PO BID Y for anxiety, TAB 0 Refills 09/04/17 Threonine (l-Threonine) 500 Mg Tab, 100 MG PO DAILY 09/04/17 Metformin (Metformin) 1,000 Mg Tab, 1000 MG PO BIDPC for Blood Sugar Management , #60 TAB 0 Refills 09/04/17 Carbamazepine (Carbamazepine) 200 Mg Tab, 200 MG PO BID, #60 TAB 0 Refills 08/28/17 Atorvastatin (Atorvastatin) 10 Mg Tab, 10 MG PO HS for Cholesterol Management, # 30 TAB 0 Refills 08/28/17 Discontinued Reported Medications Methimazole (Methimazole) 10 Mg Tab, 10 MG PO DAILY for Thyroid, #30 TAB 0 Refills 09/04/17 Discontinued Scripts Blood Pressure Test Kit-Large (Real Savvy Bp Monitor) 1 Each Kit, % .XX for Blood Pressure Management, #1 1 Refill Prov:Will Cornejo MD 08/02/17 Clonidine (Clonidine) 0.1 Mg Tab, 0.1 MG PO BID for Blood Pressure Management, # 60 TAB 0 Refills Prov:Will Cornejo MD 08/02/17 Lorazepam (Ativan) 0.5 Mg Tab, 0.5 MG PO Q6H Y for ANXIETY AND/OR AGITATION, # 15 TAB 0 Refills Prov:Will Cornejo MD 07/21/17 Current Medications Medications (Trade) Dose Ordered Sig/Chuck Route Start Time Stop Time Status Last Admin (Ativan) 1 mg Q6H PRN PO 09/08/17 06:45 (Ativan Inj) 1 mg Q6H PRN IM 09/08/17 06:45 (Tylenol) 650 mg Q4H PRN PO 09/08/17 06:45 (Milk Of Magnesia Liq) 30 ml DAILY PRN PO 09/08/17 06:45 (Mag-Al Plus Susp Liq) 30 ml Q6H PRN PO 09/08/17 06:45 (Flu (Quadrivalent) Vaccine Inj) 0.5 ml ONCE ONCE IM 09/09/17 10:00 09/09/17 10:01 (Lipitor) 10 mg HS PO 09/08/17 21:00 UNV (TEGretol) 200 mg BID PO 09/08/17 21:00 UNV (Cleocin) 300 mg Q6H PO 09/08/17 14:45 UNV (Motrin) 600 mg TID PRN PO 09/08/17 14:45 UNV (Prinivil) 10 mg DAILY PO 09/09/17 09:00 UNV (Glucophage) 1,000 mg BIDPC PO 09/08/17 18:00 UNV (Lopressor) 25 mg DAILY PO 09/09/17 09:00 UNV Patient's Strengths (min. 2) In a monitored setting. Verbally fluent. Physical Exam Physical examination was completed by hospitalist jd edwards consultant. On my examination today, the patient appears to be in no acute physical distress. No motor abnormalities noted. Labs and vitals reviewed: Vital Signs Vital Signs Date Time Temp Pulse Resp B/P (MAP) Pulse Ox O2 Delivery O2 Flow Rate FiO2 09/08/17 05:50 97.9 92 18 132/72 (92) 98 Lab Results Laboratories from outside hospital reviewed: CBC unremarkable. CMP reveals mildly elevated glucose at 152, mild hypercalcemia at 10.4, mildly elevated ALT at 42. TSH within normal limits at 2.69. Tylenol, salicylate and carbamazepine levels all undetectable. Alcohol level undetectable. Urine toxicology negative. Mental Status Examination Appearance: Appropriate Consciousness: Alert Orientation: x4 Motor Activity: Normal gait Speech: Other (somewhat rapid and rambling as can be seen in patients with anxiety disorder) Language: Adequate Fund of Knowledge: Adequate Attention and Concentration: Adequate Memory: Unremarkable Mood: Appropriate, Anxious Affect: Anxious Thought Process & Associations: Circumstantial Thought Content: Appropriate Hallucination Type: None Delusion Type: None Suicidal Ideation: Yes Suicidal Plan: No Suicidal Intention: No (declines to contract for safety on the inpatient unit) Homicidal Ideation: No Homicidal Plan: No Homicidal Intention: No Insight: Fair Judgment: Impulsive Assessment & Plan Problem List: (1) Other mixed anxiety disorders ICD Codes: F41.3 - Other mixed anxiety disorders (2) Mixed personality disorder ICD Codes: F60.89 - Other specific personality disorders Assessment & Plan 47-year-old male with psychiatric history as detailed above who presents in transfer from outside hospital under a [place] act. On my examination today, the patient reports difficulty with anxiety, chiefly generalized with associated sleep disturbance and poor concentration. He has several stigmata of anxiety disorder on mental status examination including circumstantial thought process and rapid, rambling speech. He does not provide any history consistent with a bipolar disorder, although this remains in the differential. Likewise some sort of anxiety disorder related to thyroid derangement is a possibility, although patient's TSH is within normal limits. He does seem to have a comorbid mixed personality disorder, and this may be contributing as well. I will plan to treat as for primary anxiety disorder. I initially suggested an SSRI to the patient for management of anxiety, but he is very much desirous of an antidepressant that will help him get some sleep and so we discuss off label use of Remeron for this purpose. I will plan to admit the patient to the inpatient psychiatric unit for safety, observation and stabilization. Admit inpatient. Voluntary status. Initiate Remeron 15 mg at bedtime. Atarax as needed for anxiety, trazodone as needed for sleep. R/B/A for medications discussed with patient. Consult to the hospitalist. I will continue the patient's general medical medications with further adjustments as per the hospitalist. Seizure precautions. Vitals every shift. Counselor to see and obtain collateral. Transfer to higher acuity unit given ongoing suicidal ideation and refusal to contract for safety on the inpatient unit. Disposition planning. Estimated length of stay: 5-7 days. Discharge Planning Pending psychiatric stabilization Request HC Surrog/Guard Advoc?: No Jayme Ba MD Sep 08, 2017 14:43
[2017-09-08] MEDS ORDERED: GLUCAGON 1 MG/ML VIAL OTHER PRN (14:45)
[2017-09-08] MEDS ORDERED: hydrOXYzine HCL 50 MG TAB PO PRN (14:45)
[2017-09-08] MEDS ORDERED: DEXTROSE 50% IN WATER 50 ML VIAL(D50) IV PUSH PRN (14:45)
[2017-09-08] MEDS: CLINDAMYCIN 150 MG CAP PO SCH ×2 (16:59→21:00)
[2017-09-08] MEDS: INSULIN ASPART SUPPLEMENTAL SCALE SQ SCH ×2 (17:00→20:44)
[2017-09-08] MEDS: metFORMIN HCL 500 MG TAB PO SCH (18:08)
[2017-09-08] MEDS: IBUPROFEN 600 MG TAB PO PRN (18:09)
[2017-09-08] MEDS: carBAMazepine 200 MG TAB PO SCH (20:41)
[2017-09-08] MEDS: MIRTAZAPINE 15 MG TAB PO SCH (20:41)
[2017-09-08] MEDS: ATORVASTATIN 10 MG TAB PO SCH (20:41)
[2017-09-08] MEDS ORDERED: traZODone HCL 50 MG TAB PO PRN (21:00)
[2017-09-09] MEDS: CLINDAMYCIN 150 MG CAP PO SCH ×4 (03:00→20:16)
[2017-09-09 06:17] VITALS: BP 117/68; PULSE 97; RESP 16; TEMP 97.4; O2SAT 100
[2017-09-09] MEDS: INSULIN ASPART SUPPLEMENTAL SCALE SQ SCH ×4 (08:00→20:20)
[2017-09-09 08:47] LABS: AUTOMATED NEUTROPHIL # 2.9 TH/MM3 (1.8-7.7); BASOPHIL % 0.6 % (0.0-2.0); EOSINOPHIL # 0.1 TH/MM3 (0-0.4); EOSINOPHIL % 2.3 % (0.0-4.0); HEMATOCRIT 42.3 % (39.0-51.0); HEMOGLOBIN 14.7 GM/DL (13.0-17.0); LYMPH % 33.3 % (9.0-44.0); LYMPHOCYTE # 1.8 TH/MM3 (1.0-4.8); MEAN CELL VOLUME 88.6 FL (80.0-100.0); MEAN CORPUSCULAR HEMOGLOBIN 30.8 PG (27.0-34.0); MEAN CORPUSCULAR HGB CONC 34.8 % (32.0-36.0); MEAN PLATELET VOLUME 9.4 FL (7.0-11.0); MONO % 9.7 % (0.0-8.0); MONOCYTE # 0.5 TH/MM3 (0-0.9); NEUT % 54.1 % (16.0-70.0); PLATELET COUNT 227 TH/MM3 (150-450); RED BLOOD COUNT 4.77 MIL/MM3 (4.50-5.90); RED CELL DISTRIBUTION WIDTH 13.2 % (11.6-17.2); WHITE BLOOD COUNT 5.3 TH/MM3 (4.0-11.0)
[2017-09-09] MEDS: metFORMIN HCL 500 MG TAB PO SCH ×2 (09:00→18:00)
[2017-09-09] MEDS: carBAMazepine 200 MG TAB PO SCH ×2 (09:00→20:16)
[2017-09-09] MEDS: LORATADINE 10 MG TAB PO SCH (09:00)
[2017-09-09] MEDS: LISINOPRIL 10 MG TAB PO SCH (09:00)
[2017-09-09] MEDS: METOPROLOL TARTRATE 25 MG TAB PO SCH (09:00)
[2017-09-09] MEDS: FLUTICASONE PROPIONATE 50 MCG/ACT 16 GM NASAL SPRAY EACH NARE SCH (09:00)
[2017-09-09] MEDS: METHIMAZOLE 5 MG TAB PO SCH (09:00)
[2017-09-09 09:15] LABS: ALBUMIN 4.2 GM/DL (3.4-5.0); AST (GOT) 26 U/L (15-37); BICARBONATE 29.9 MEQ/L (21.0-32.0); BLOOD UREA NITROGEN 12 MG/DL (7-18); CALCIUM 9.6 MG/DL (8.5-10.1); CHLORIDE 101 MEQ/L (98-107); CREATININE 1.21 MG/DL (0.60-1.30); GLOMERULAR FILTRATION RATE 64 ML/MIN (>89); GLUCOSE,RANDOM 162 MG/DL (74-106); SODIUM (NA) 137 MEQ/L (136-145)
[2017-09-09 09:17] LABS: ALT (GPT) 51 U/L (12-78)
[2017-09-09 09:19] LABS: ALKALINE PHOSPHATASE 69 U/L (45-117); TOTAL BILIRUBIN ADULT 0.5 MG/DL (0.2-1.0); TOTAL PROTEIN 7.6 GM/DL (6.4-8.2)
[2017-09-09] MEDS: IBUPROFEN 600 MG TAB PO PRN ×2 (09:31→15:19)
[2017-09-09] MEDS ORDERED: INFLUENZA VIRUS VACCINE (QUADRIVALENT) 0.5 ML SYR IM ONE (10:00)
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
[2017-09-09 12:23] LABS: HEMOGLOBIN A1C 8.6 % (4.3-6.0)
--- NOTE | 2017-09-09 12:28 | HHI.PR ---
Subjective Remarks Follow-up visit for DM, HTN, elevated lipase and abdominal pain. Patient seen and examined with nurse present in the liz. He continues to appear anxious with rapid speech, but state that he is feeling today. He was able to move his bowels yesterday without incident, denies any more abdominal pain, or tenderness. Eating and drinking without issues, denies nausea, vomiting, diarrhea or GERD. He also tells me that he feels as if his BS have been stable. Objective Vitals Vital Signs Date Time Temp Pulse Resp B/P (MAP) Pulse Ox O2 Delivery O2 Flow Rate FiO2 09/09/17 06:17 97.4 97 16 117/68 (84) 100 Result Diagram: 09/09/1782109/09/17 08 Other Results GENERAL: This is a well-nourished, well-developed patient, in no apparent distress. SKIN: No rashes, ecchymoses or lesions. Cool and dry. Pale. HEAD: Atraumatic. Normocephalic. EYES: Pupils equal round and reactive. Extraocular motions intact. No scleral icterus. No injection or drainage. ENT: Nose without bleeding, purulent drainage. Throat without erythema, tonsillar hypertrophy or exudate. Uvula midline. Airway patent. NECK: Trachea midline. No JVD or lymphadenopathy. Supple. CARDIOVASCULAR: Regular rate and rhythm without murmurs, gallops, or rubs. RESPIRATORY: Clear to auscultation. Breath sounds equal bilaterally. No wheezes , rales, or rhonchi. Breathing nonlabored. GASTROINTESTINAL: Abdomen soft, nontender, nondistended. No palpable masses. No guarding. MUSCULOSKELETAL: Extremities without clubbing, cyanosis, or edema. No joint tenderness, effusion, or edema noted. NEUROLOGICAL: Awake and alert. Cranial nerves grossly intact. Motor and sensory grossly within normal limits. Normal speech is fast but clear. Appears anxious. A/P Assessment and Plan 47-year-old male with past medical history significant for diabetes, hypertension, hyperlipidemia, GERD, and hyperthyroidism who was transferred from [facility] under [place] act. Anxiety/personality disorder -Treatment per psychiatry Hypertension, controlled HLD -Continue lisinopril 10 mg daily and metoprolol tartrate 25 mg daily -Continue home dose Lipitor 10 mg at bedtime - HR and BP stable Diabetes mellitus -Patient reports his blood sugars have greatly improved since changing his diet drastically and losing weight. - hemoglobin A1c 8.6, goal <7 -ADA diet, metformin 1000 mg twice daily, Accu-Cheks with insulin sliding scale before meals at bedtime - BS well controlled Hyperthyroidism -TSH recently checked on 08/28/17 was 1.38, normal -Continue methimazole 5 mg daily Abdominal pain Elevated Lipase level -BM yesterday, denies abdominal pain today -CBC unremarkable, CMP stable with mildly reduced GFR, Lipase 727. -Patient recently underwent CT of the abdomen and pelvis with contrast on which was negative. - Denies abdominal pain or discomfort, eating and drinking without issues - Encourage fluid intake and recheck Lipase levels tomorrow, if continue to go up, consider GI consult for further recommendations. DVT prophylaxis-ambulating Discussed with Vladimir Ham Sep 09, 2017 12:28
[2017-09-09 16:30] VITALS: BP 116/67; PULSE 92; RESP 16; TEMP 98.6; O2SAT 99
[2017-09-09] MEDS: ATORVASTATIN 10 MG TAB PO SCH (20:16)
[2017-09-09] MEDS: MIRTAZAPINE 15 MG TAB PO SCH (20:16)
[2017-09-10] MEDS: CLINDAMYCIN 150 MG CAP PO SCH ×4 (02:12→21:00)
[2017-09-10 06:11] VITALS: BP 106/69; PULSE 92; RESP 17; TEMP 98.6
[2017-09-10] MEDS: INSULIN ASPART SUPPLEMENTAL SCALE SQ SCH ×4 (08:00→21:00)
[2017-09-10] MEDS: LISINOPRIL 10 MG TAB PO SCH (09:00)
[2017-09-10] MEDS: IBUPROFEN 600 MG TAB PO PRN ×2 (09:00→16:51)
[2017-09-10] MEDS: FLUTICASONE PROPIONATE 50 MCG/ACT 16 GM NASAL SPRAY EACH NARE SCH (09:00)
[2017-09-10] MEDS: METOPROLOL TARTRATE 25 MG TAB PO SCH (09:00)
[2017-09-10] MEDS: METHIMAZOLE 5 MG TAB PO SCH (09:00)
[2017-09-10] MEDS: LORATADINE 10 MG TAB PO SCH (09:00)
[2017-09-10] MEDS: metFORMIN HCL 500 MG TAB PO SCH ×2 (09:00→16:51)
[2017-09-10] MEDS: carBAMazepine 200 MG TAB PO SCH ×2 (09:00→21:13)
--- NOTE | 2017-09-10 10:55 | HHI.PYPN ---
Subjective Chief Complaint: Anxiety Remarks Patient seen and examined with nurse. Chart reviewed. Case discussed with nursing staff. Patient noted to be somewhat needy but otherwise no real behavioral problem. On my examination today, the patient is in good spirits. He says that his mood is improving considerably. He is sleeping better. He remains little bit anxious. He has set several goals for himself after discharge including spending more time with friends and going to the gym. He denies any suicidal or homicidal ideation and now contracts for safety. Denies any side effects from medications. No physical complaints. Review of Systems Except as stated in HPI: all other systems reviewed are Neg Mental Status Examination Appearance: Appropriate Consciousness: Alert Orientation: x4 Motor Activity: Normal gait, Other (no motor abnormalities noted) Speech: Unremarkable Language: Adequate Fund of Knowledge: Adequate Attention and Concentration: Adequate Memory: Unremarkable Mood: Appropriate, Anxious (decreasing) Affect: Appropriate (fairly appropriate today) Thought Process & Associations: Intact Thought Content: Appropriate Hallucination Type: None Delusion Type: None Suicidal Ideation: No Suicidal Plan: No Suicidal Intention: No Homicidal Ideation: No Homicidal Plan: No Homicidal Intention: No Mental Status Exam Remarks Insight and judgment are fair. Results Labs Test 09/10/17 06:50 Lipase 612 U/L Labs reviewed. Lipase is downtrending Vitals/IOs Vital Signs Date Time Temp Pulse Resp B/P (MAP) Pulse Ox O2 Delivery O2 Flow Rate FiO2 09/10/17 06:11 98.6 92 17 106/69 (81) 09/09/17 16:30 99 Assessment & Plan Problem List: (1) Other mixed anxiety disorders ICD Codes: F41.3 - Other mixed anxiety disorders (2) Mixed personality disorder ICD Codes: F60.89 - Other specific personality disorders Assessment & Plan Continue Remeron as ordered. Transfer to 2600 unit. Hospitalist input noted and appreciated. Continue other medications include care as ordered. Justification for Cont. Inpt. Monitoring for impairment in safety, none noted Discharge Planning Anticipate discharge in the next 1-2 days. Case discussed with counselor. Request HC Surrog/Guard Advoc?: No Jayme Ba MD Sep 10, 2017 10:55
[2017-09-10 13:41] VITALS: BP 118/62; PULSE 100; RESP 16; O2SAT 97
[2017-09-10] MEDS ORDERED: CALCIUM CARBONATE 500 MG CHEWABLE TAB CHEW ONE ×2 (14:00→15:30)
--- NOTE | 2017-09-10 14:01 | HHI.PR ---
Subjective Remarks Follow-up visit for DM, HTN, elevated lipase and abdominal pain. Patient seen and examined in his room, continues to be visibly anxious. He reports that he was having some pain in his lower chest and felt like it was "sour stomach' he denies any nausea, vomiting, or shortness of breath. He states this is not a pain but more of a discomfort and is not sure if it is his acid reflux. He is also very concerned over his pancreas and continues to repeatedly ask if we are going to do an ultrasound if it to see what is going on. He feels like he has made drastic changes to his diet for get his cholesterol and diabetes under control. He is visibly very anxious and worried about what is going on with his health. I tell him that we are monitoring him and that things are fine at this moment. He agrees that he worries a lot and that that is a big problem that he has. Nurse reported that patient made statements of chest pain prior to my exam , no other acute concerns. Objective Vitals Vital Signs Date Time Temp Pulse Resp B/P (MAP) Pulse Ox O2 Delivery O2 Flow Rate FiO2 09/10/17 13:41 100 16 118/62 (80) 97 09/10/17 06:11 98.6 92 17 106/69 (81) 09/09/17 16:30 98.6 92 16 116/67 (83) 99 Result Diagram: 09/09/1782109/09/17 08 Objective Remarks GENERAL: This is a well-nourished, well-developed patient, in no apparent distress. SKIN: No rashes, ecchymoses or lesions. Cool and dry. Pale. HEAD: Atraumatic. Normocephalic. EYES: Pupils equal round and reactive. Extraocular motions intact. No scleral icterus. No injection or drainage. ENT: Nose without bleeding, purulent drainage. Throat without erythema, tonsillar hypertrophy or exudate. Uvula midline. Airway patent. NECK: Trachea midline. No JVD or lymphadenopathy. Supple. CARDIOVASCULAR: Regular rate and rhythm without murmurs, gallops, or rubs. RESPIRATORY: Clear to auscultation. Breath sounds equal bilaterally. No wheezes , rales, or rhonchi. Breathing nonlabored. GASTROINTESTINAL: Abdomen soft, nontender, nondistended. No palpable masses. No guarding. MUSCULOSKELETAL: Extremities without clubbing, cyanosis, or edema. No joint tenderness, effusion, or edema noted. NEUROLOGICAL: Awake and alert. Cranial nerves grossly intact. Motor and sensory grossly within normal limits. Normal speech is fast but clear. Appears anxious. A/P Assessment and Plan 47-year-old male with past medical history significant for diabetes, hypertension, hyperlipidemia, GERD, and hyperthyroidism who was transferred from [facility] under [place] act. Anxiety/personality disorder -Treatment per psychiatry Hypertension, controlled HLD -Continue lisinopril 10 mg daily and metoprolol tartrate 25 mg daily -Continue home dose Lipitor 10 mg at bedtime - HR and BP stable Diabetes mellitus -Patient reports his blood sugars have greatly improved since changing his diet drastically and losing weight. - hemoglobin A1c 8.6, goal <7 -ADA diet, metformin 1000 mg twice daily, Accu-Cheks with insulin sliding scale before meals at bedtime - BS well controlled Hyperthyroidism -TSH recently checked on 08/28/17 was 1.38, normal -Continue methimazole 5 mg daily Abdominal pain Elevated Lipase level -BM yesterday, denies abdominal pain today -CBC unremarkable, CMP stable with mildly reduced GFR - Lipase 727-->612 trending down, encouraged to continue PO fluids. Discussed with patient will not do US as his levels are coming down, he understands and states he feels better after hearing this. - Patient recently underwent CT of the abdomen and pelvis with contrast on which was negative. - Eating and drinking with out issues Lower chest pain/epigastric pain - Patient with a history of GERD - VSS, recently underwent stress test on 09/04/17 and was negative - Will obtain stat troponin and EKG: showing NSR - Likely GERD, will give TUMS and start Pepcid DVT prophylaxis-ambulating Discussed with Nurse Vladimir Oconnor Sep 10, 2017 14:01
[2017-09-10 18:21] VITALS: BP 119/68; PULSE 97; RESP 18; TEMP 98.1; O2SAT 97
[2017-09-10] MEDS ORDERED: CALCIUM CARBONATE 500 MG CHEWABLE TAB CHEW PRN (20:00)
[2017-09-10] MEDS: ATORVASTATIN 10 MG TAB PO SCH (21:13)
[2017-09-10] MEDS: MIRTAZAPINE 15 MG TAB PO SCH (21:13)
[2017-09-10] MEDS: FAMOTIDINE 20 MG TAB PO SCH (21:13)
[2017-09-11] MEDS: CLINDAMYCIN 150 MG CAP PO SCH ×2 (03:05→08:19)
[2017-09-11 05:18] VITALS: BP 116/65; PULSE 85; RESP 18; TEMP 97.5; O2SAT 96
[2017-09-11] MEDS: INSULIN ASPART SUPPLEMENTAL SCALE SQ SCH ×2 (07:34→11:19)
[2017-09-11] MEDS: METOPROLOL TARTRATE 25 MG TAB PO SCH (08:17)
[2017-09-11] MEDS: metFORMIN HCL 500 MG TAB PO SCH (08:18)
[2017-09-11] MEDS: FAMOTIDINE 20 MG TAB PO SCH (08:18)
[2017-09-11] MEDS: LISINOPRIL 10 MG TAB PO SCH (08:18)
[2017-09-11] MEDS: carBAMazepine 200 MG TAB PO SCH (08:18)
[2017-09-11] MEDS: LORATADINE 10 MG TAB PO SCH (08:18)
[2017-09-11] MEDS: FLUTICASONE PROPIONATE 50 MCG/ACT 16 GM NASAL SPRAY EACH NARE SCH ×2 (08:20→10:37)
[2017-09-11] MEDS: METHIMAZOLE 5 MG TAB PO SCH ×2 (08:22→10:37)
[2017-09-11] MEDS ORDERED: MIRTA15 PO (10:29)
[2017-09-11] MEDS ORDERED: METH5 PO (10:29)
[2017-09-11] MEDS ORDERED: FAMO20TA2 PO (10:29)
[2017-09-11] MEDS ORDERED: CLAR10TA7 PO (10:29)
--- NOTE | 2017-09-11 10:29 | HHI.DS ---
Psychiatry Discharge Summary Inpatient Psychiatric care?: Yes Advance Directive: No Reason Not Provided: declined Mental Health AdvanceDirective: No Health Care Proxy: No Admission Admission Date Sep 08, 2017 at 06:00 Admission Diagnosis: (1) Other mixed anxiety disorders ICD Code: F41.3 - Other mixed anxiety disorders (2) Mixed personality disorder ICD Code: F60.89 - Other specific personality disorders Brief History Mr. Corrigan is a 47-year-old male with no reported past psychiatric history who presents in transfer from [facility] under a [place] act. Patient presented there per records with complaints of depression and suicidal ideation. Reviewing our electronic medical record, I see no previous psychiatric contact within our system. Patient seen and examined with nurse. Chart reviewed. Case discussed with nursing staff. On my examination today, the patient presents with rapid, circumstantial speech is can be seen in patients with anxiety disorders. He complains of poor concentration and poor sleep secondary to anxious rumination. He admits to fleeting suicidal ideation and endorses ongoing suicidal ideation and declines to contract for safety on the inpatient unit. I have ordered the patient transferred to the higher acuity unit into a camera room for closer monitoring as the patient refuses to contract for safety. He denies any issues with mood per se. Denies any audiovisual hallucinations. I can elicit no delusional beliefs including but not limited to paranoia, ideas of reference or thought insertion/withdrawal. He denies any homicidal ideation. I can elicit no elizabeth jenny hypomanic or manic symptoms presently nor in the past. He denies any obsessions. Denies any compulsions. He exhibits prominent dysfunctional personality traits with features of obsessive- compulsive personality, narcissistic personality and avoidant personality. The remainder of the psychiatric ROS is negative. The patient has no physical complaints presently. Past psychiatric history: The patient denies any history of psychiatric diagnosis. He has only seen psychiatry briefly in the past. He has been under the care of a psychotherapist before, mostly for general counseling. He denies any history of psychiatric admissions. Denies any history of suicide attempts. Family history: The patient is adopted and knows nothing of his biological family psychiatric history. Chemical dependency history: The patient denies any abuse of drugs or alcohol. Social history: The patient is originally from [place]. He is and has a 22-year-old daughter who lives in [place]. He is high school educated and had some college. He previously worked for [employer] for 13 years. He denies any history. Denies any legal history. Denies any access to guns or firearms. Denies any history of physical, verbal or sexual abuse. Tobacco Use In Past 30 Days: No Tobacco Past 30 Days Alcohol Use: Never Hospital Course Patient was admitted to a locked, inpatient psychiatric unit. A general medical consultation was obtained and the patient was medically cleared prior to discharge. Appropriate precautions were in place throughout patient's hospital stay. Patient was seen and examined on the unit by psychiatry and also visited by counselor. Psychotropic medications were adjusted. Patient tolerated medication changes well without side effects. Patient had improvement in presenting psychiatric symptomatology during the course of his hospital stay. There was no evidence of any suicidality or homicidality on the inpatient unit. The patient remained in behavioral control and was compliant with medications. On the day of discharge: Patient seen and examined. Chart reviewed. Case discussed with nursing staff. No behavioral issues noted overnight. Case discussed in treatment team. Counselor notes that she has reached out the patient's brother who is comfortable with the patient being discharged home today per counselor report. On my examination today, the patient denies any suicidal or homicidal ideation, intent or plan on direct questioning and contracts for safety. I can elicit no depressive or hypomanic/ manic symptoms. He does continue to describe some anxious symptoms, but these are decreased versus admission. The patient slept well overnight. He denies any audiovisual hallucinations. I can elicit no delusional material. There is no evidence of any impairment in reality construction. Patient does continue to exhibit mixed personality disorder traits with avoidant, obsessive compulsive and narcissistic features. He denies side effects from medications. No physical complaints besides a mild headache. Suicide and violence risk assessment on day of discharge both suggest lower imminent risk, and the patient 's level of function is adequate for outpatient care. Mixed personality disorder confers chronic but not acute or imminent risk, and this risk would not be ameliorated by a longer inpatient psychiatric hospital stay. The patient has maximized benefit from this inpatient psychiatric hospital stay and will be discharged home today with psychiatric follow-up as arranged by counselor. Patient is also to follow-up with primary care. I have counseled the patient to return to the psychiatric emergency room for any concerning psychiatric symptoms as part of a general safety plan. Results Blood Pressure 116 / 65 Vital Signs Date Time Temp Pulse Resp B/P (MAP) Pulse Ox O2 Delivery O2 Flow Rate FiO2 09/11/17 05:18 97.5 85 18 116/65 (82) 96 Laboratory Tests Test 09/09/17 08:22 09/10/17 06:50 09/10/17 15:13 Monocytes (%) (Auto) 9.7 % (0.0-8.0) Random Glucose 162 MG/DL (74-106) Estimat Glomerular Filtration Rate 64 ML/MIN (>89) Hemoglobin A1c 8.6 % (4.3-6.0) Lipase 727 U/L (73-393) 612 U/L (73-393) Troponin I LESS THAN 0.02 NG/ML Laboratory Results Test 09/09/17 08:22 Hemoglobin A1c 8.6 % (4.3-6.0) Summary of Procedures None done Imaging None done Pending results at discharge: No Medications # of Antipsychotic meds at D/C: 0 Approp Antipsych med options 1 - Minimum of three failed multiple trials of monotherapy. 2 - Documented plan to taper to monotherapy due to previous use of multiple meds OR cross-taper in progress at D/C. 3 - Documentation of augmentation of Clozapine. 4 - Justification other than those listed in allowable values 1-3, document here : Discharge Discharge Date: Sep 11, 2017 Discharge Diagnosis: (1) Other mixed anxiety disorders Diagnosis: Principal (improved versus admission) ICD Code: F41.3 - Other mixed anxiety disorders (2) Mixed personality disorder Diagnosis: Secondary ICD Code: F60.89 - Other specific personality disorders Pt Condition on Discharge: Stable Discharge Disposition: Discharge Home Discharge Instructions Diet Instructions: Diabetic Diet Activities you can perform: Weight Bearing as Amarilis Scheduled Appointment: as per counselor's notes New Orders: COMP MET PROF (CMP) - 1 Week LIPASE - 1 Week TEGRETOL - 1 Week New Medications: Famotidine (Famotidine) 20 Mg Tab 20 MG PO BID for Health for 15 Days, #30 TAB 1 Refill Loratadine (Claritin) 10 Mg Tablet 5 MG PO DAILY for Health for 15 Days, #8 TAB 1 Refill Methimazole (Tapazole) 5 Mg Tab 5 MG PO DAILY for Thyroid for 1 Day, #1 TAB 0 Refills Order is to update med rec only. Patient has supply at home. Mirtazapine (Mirtazapine) 15 Mg Tab 15 MG PO HS for Mental Health for 15 Days, TAB 1 Refill Continued Medications: Atorvastatin (Atorvastatin) 10 Mg Tab 10 MG PO HS for Cholesterol Management, #30 TAB 0 Refills Carbamazepine (Carbamazepine) 200 Mg Tab 200 MG PO BID, #60 TAB 0 Refills Chlorhexidine Gluconate (Mouth) Liq (Peridex Liq) 0.12% Soln 15 ML SWISH-SPIT BID, #473 ML 0 Refills Clindamycin (Clindamycin) 300 Mg Cap 300 MG PO Q6H for Infection for 10 Days, #40 CAP 0 Refills Ibuprofen (Ibuprofen) 600 Mg Tab 600 MG PO TID PRN for PAIN SCALE 1 TO 10, #21 TAB 0 Refills Lisinopril (Lisinopril) 10 Mg Tab 10 MG PO DAILY, #30 TAB 0 Refills Metformin (Metformin) 1,000 Mg Tab 1000 MG PO BIDPC for Blood Sugar Management, #60 TAB 0 Refills Metoprolol Tartrate (Metoprolol Tartrate) 25 Mg Tab 25 MG PO DAILY, #30 TAB 0 Refills Threonine (l-Threonine) 500 Mg Tab 100 MG PO DAILY Discontinued Medications: Buspirone (Buspirone) 5 Mg Tab 5 MG PO BID PRN for anxiety, TAB 0 Refills Discharge Time > 30 minutes Mental Status Examination Appearance: Appropriate Consciousness: Alert Orientation: x4 Motor Activity: Normal gait, Other (no abnormal motor movements noted) Speech: Unremarkable Language: Adequate Fund of Knowledge: Adequate Attention and Concentration: Adequate Memory: Unremarkable Mood: Appropriate, Anxious (decreased versus admission) Affect: Appropriate Thought Process & Associations: Intact, Logical, Goal directed, Linear Thought Content: Appropriate Hallucination Type: None Delusion Type: None Suicidal Ideation: No Suicidal Plan: No Suicidal Intention: No Homicidal Ideation: No Homicidal Plan: No Homicidal Intention: No Insight: Adequate Judgment: Adequate Discharge/Advance Care Plan Health Problems: (1) Other mixed anxiety disorders (2) Mixed personality disorder Goals to promote your health * To prevent worsening of your condition and complications * To maintain your health at the optimal level Directions to meet your goals Take your medications as prescribed Follow your dietary instruction Follow activity as directed Keep your appointments as scheduled Take your immunizations and boosters as scheduled If your symptoms worsen call your PCP, if no PCP go to Urgent Care Center or Emergency Room For 05/02 questions related to your inpatient stay or results of tests pending at discharge, please contact Dr. Jayme Ba at Smoking is Dangerous to Your Health. Avoid second hand smoking Jayme Ba MD Sep 11, 2017 10:29
--- NOTE | 2017-09-11 14:52 | PD.TTN ---
Patient Problems 1. Discharge planning 2. Medication compliance 3. Knowledge deficit 4. Lack of coping skills Progress Toward Goals Provider Present: Dr. Gerry Staley Provider Input: 09/11/17 - Patient will be discharged home today and referred to [facility] for psychiatric follow-up acre. Psychiatric Counselors Present: KENN Alvarez Psych Therapist Input: 09/11/17 - Patient appears needy and displays signs of personalty disorder. He appears to enjoy being on the unit and yesterday afternoon the patient reortts to this counselor that he dre stay here as long as he is allowed. Counselor informed the patient that it will most likely be a brief stay. Group Spec/RT/OT/MARQUES Present: MAXWELL Zaragoza Group Spec/RT/OT/MARQUES Input: 09/11/17 - Patient attends groups with good participation. Discharge Plan [facility] 09/11/17 - Patient will be discharged home today. Documentation Scribe: KENN Alvarez Date Resolved: Sep 11, 2017 Sena Vazquez Sep 11, 2017 14:52
--- NOTE | 2017-09-11 22:48 | EKG ---
Date Performed: 09/10/2017 Time Performed: 14:08:02 PTAGE: 47 years EKG: Sinus rhythm Poor R wave progression - probable normal variant Borderline ECG PREVIOUS TRACING : 09/04/2017 13.07 Since the prior tracing, there has been no significant cotto DOCTOR: Phyllis Ruano Interpretating Date/Time 09/11/2017 22:46:56
== END 2017-09-11 15:00 | disposition home or self-care (01) | DRG 880 ==
LOC: H260 06:00 → H270 17:57 → H260 09-10 12:33
PROVIDERS: ADMIT Psychiatry & Neurology Psychiatry; ATTEND Psychiatry & Neurology Psychiatry
DX: F41.3 Other mixed anxiety disorders (principal); R45.851 Suicidal ideations; Z91.14 Patient's other noncompliance with medication regimen; F60.89 Other specific personality disorders; F60.81 Narcissistic personality disorder; F42.9 Obsessive-compulsive disorder, unspecified; K21.9 Gastro-esophageal reflux disease without esophagitis; G47.9 Sleep disorder, unspecified; E78.5 Hyperlipidemia, unspecified; E11.9 Type 2 diabetes mellitus without complications; F32.9 Major depressive disorder, single episode, unspecified; I10 Essential (primary) hypertension; E05.90 Thyrotoxicosis, unspecified without thyrotoxic crisis or storm; K59.00 Constipation, unspecified; R05 Cough; R74.8 Abnormal levels of other serum enzymes; Z79.899 Other long term (current) drug therapy; Z79.84 Long term (current) use of oral hypoglycemic drugs; Z23 Encounter for immunization
CPT/HCPCS: 80053; 82948; 83036; 83690; 84484; 85025; 90686; 93005; Q2038

== ENCOUNTER 2017-09-15 19:05 | Emergency (ER) | payer SELFPAY ==
[~2017-09-15] VITALS: Ht 180.3 cm; Wt 93.0 kg
[~2017-09-15 19:05] MED LIST changes: -BUSP5TAB PO; +CLAR10TA7 PO; +FAMO20TA2 PO; +METH5 PO; -METHI10 PO; +MIRTA15 PO
[2017-09-15 19:39] VITALS: BP 165/80; PULSE 105; RESP 20; TEMP 98.2; O2SAT 100
[2017-09-15] MEDS ORDERED: SODIUM CHLOR 0.9% 1000 ML INJ 1,000 ML IV ONE (20:16)
--- NOTE | 2017-09-15 20:57 | PD ---
HPI Chief Complaint: Flank/Kidney Pain Time Seen by Provider: 19:55 Travel History International Travel<30 days: No Contact w/Intl Traveler<30days: No Traveled to known affect area: No History of Present Illness HPI 47-year-old male with a history of diabetes mellitus, hypertension, mixed personality disorder presents emergency department with concerns of left flank pain that started yesterday. Patient states that the pain is worse with laying down and decreases with walking. States that the pain is 5/10 with walking 8/ 10 laying down. Pain started when he was patient denies urinary complaints, hematuria, melena, hematochezia. States he feels mildly nauseous because of advanced anxiety. Says he has normal bowel movements. Denies vomiting or diarrhea. Patient denies cardiac or pulmonary issues. No history of surgeries. No prior history of this pain today. PFSH Past Medical History Anxiety: Yes Depression: Yes Cardiac Catheterization: No Cardiovascular Problems: Yes High Cholesterol: Yes Congestive Heart Failure: No Diabetes: Yes Patient Takes Glucophage: No Diminished Hearing: No Endocrine: Yes Hypertension: Yes Immune Disorder: No Neurologic: No Psychiatric: Yes Respiratory: No Immunizations Current: Yes Seizures: Yes Thyroid Disease: Yes Triglycerides - High: Yes Tetanus Vaccination: > 5 Years Influenza Vaccination: Yes Past Surgical History Coronary Artery Bypass Graft: No Other Surgery: Yes Social History Alcohol Use: No Tobacco Use: No Substance Use: No Allergies-Medications (Allergen,Severity, Reaction): Coded Allergies: No Known Allergies (Unverified , 09/15/17) Reported Meds & Prescriptions Reported Meds & Active Scripts Active Famotidine 20 Mg Tab 20 Mg PO BID 15 Days Claritin (Loratadine) 10 Mg Tablet 5 Mg PO DAILY 15 Days Mirtazapine 15 Mg Tab 15 Mg PO HS 15 Days Tapazole (Methimazole) 5 Mg Tab 5 Mg PO DAILY 1 Days Order is to update med rec only. Patient has supply at home. Ibuprofen 600 Mg Tab 600 Mg PO TID PRN Peridex Liq (Chlorhexidine Gluconate (Mouth) Liq) 0.12% Soln 15 Ml SWISH-SPIT BID Clindamycin (Clindamycin HCl) 300 Mg Cap 300 Mg PO Q6H 10 Days Metoprolol Tartrate 25 Mg Tab 25 Mg PO DAILY Lisinopril 10 Mg Tab 10 Mg PO DAILY Reported l-Threonine (Threonine) 500 Mg Tab 100 Mg PO DAILY Metformin (Metformin HCl) 1,000 Mg Tab 1,000 Mg PO BIDPC Carbamazepine 200 Mg Tab 200 Mg PO BID Atorvastatin (Atorvastatin Calcium) 10 Mg Tab 10 Mg PO HS Review of Systems Except as stated in HPI: all other systems reviewed are Neg Physical Exam Narrative GENERAL: Well-developed, well-nourished anxious SKIN: Focused skin assessment warm/dry. No rashes or lesions HEAD: Atraumatic. Normocephalic. EYES: Pupils equal and round. No scleral icterus. No injection or drainage. ENT: No nasal bleeding or discharge. Mucous membranes pink and moist. NECK: Trachea midline. No JVD. No lymphadenopathy CARDIOVASCULAR: Regular rate and rhythm. No murmur appreciated. RESPIRATORY: No accessory muscle use. Clear to auscultation. Breath sounds equal bilaterally. GASTROINTESTINAL: Abdomen soft, non-tender, nondistended. Hepatic and splenic margins not palpable. No caput medusa, stray or scars. Initially tender to palpation left lower quadrant and it without rebound tenderness. Subsequent palpation revealed only mild TTP at best MUSCULOSKELETAL: No obvious deformities. No clubbing. No cyanosis. No edema. Homans sign negative bilaterally NEUROLOGICAL: Awake and alert. No obvious cranial nerve deficits. Motor grossly within normal limits. Normal speech. PSYCHIATRIC: Appropriate mood and affect; insight and judgment normal. Data Data Last Documented VS Vital Signs Date Time Temp Pulse Resp B/P (MAP) Pulse Ox O2 Delivery O2 Flow Rate FiO2 09/15/17 22:22 09/15/17 21:51 99 Room Air 09/15/17 19:39 98.2 105 20 Orders Orders Complete Blood Count With Diff (09/15/17 20:16) Comprehensive Metabolic Panel (09/15/17 20:16) Urinalysis - C+S If Indicated (09/15/17 20:16) Sodium Chlor 0.9% 1000 Ml Inj (Ns 1000 M (09/15/17 20:16) Lipase (09/15/17 20:16) Prothrombin Time / Inr (Pt) (09/15/17 20:16) Act Partial Throm Time (Ptt) (09/15/17 20:16) Iv Access Insert/Monitor (09/15/17 20:16) Ecg Monitoring (09/15/17 20:16) Oximetry (09/15/17 20:16) NPO (09/15/17 20:16) Electrocardiogram (09/15/17 20:16) Mandatory Outpatient Referral (09/15/17 21:57) Ed Discharge Order (09/15/17 22:01) Labs Laboratory Tests Test 09/15/17 20:45 09/15/17 21:15 White Blood Count 7.4 TH/MM3 Red Blood Count 4.69 MIL/MM3 Hemoglobin 14.2 GM/DL Hematocrit 41.5 % Mean Corpuscular Volume 88.3 FL Mean Corpuscular Hemoglobin 30.3 PG Mean Corpuscular Hemoglobin Concent 34.3 % Red Cell Distribution Width 13.2 % Platelet Count 243 TH/MM3 Mean Platelet Volume 9.4 FL Neutrophils (%) (Auto) 65.5 % Lymphocytes (%) (Auto) 23.4 % Monocytes (%) (Auto) 9.6 % Eosinophils (%) (Auto) 1.1 % Basophils (%) (Auto) 0.4 % Neutrophils # (Auto) 4.8 TH/MM3 Lymphocytes # (Auto) 1.7 TH/MM3 Monocytes # (Auto) 0.7 TH/MM3 Eosinophils # (Auto) 0.1 TH/MM3 Basophils # (Auto) 0.0 TH/MM3 CBC Comment DIFF FINAL Differential Comment Prothrombin Time 10.9 SEC Prothromb Time International Ratio 1.1 RATIO Activated Partial Thromboplast Time 31.2 SEC Blood Urea Nitrogen 12 MG/DL Creatinine 0.99 MG/DL Random Glucose 131 MG/DL Total Protein 7.3 GM/DL Albumin 3.9 GM/DL Calcium Level 10.1 MG/DL Alkaline Phosphatase 67 U/L Aspartate Amino Transf (AST/SGOT) 25 U/L Alanine Aminotransferase (ALT/SGPT) 51 U/L Total Bilirubin 0.3 MG/DL Sodium Level 139 MEQ/L Potassium Level 3.8 MEQ/L Chloride Level 103 MEQ/L Carbon Dioxide Level 27.0 MEQ/L Anion Gap 9 MEQ/L Estimat Glomerular Filtration Rate 80 ML/MIN Lipase 569 U/L Urine Color YELLOW Urine Turbidity CLEAR Urine pH 6.0 Urine Specific Warren 1.017 Urine Protein TRACE mg/dL Urine Glucose (UA) NEG mg/dL Urine Ketones NEG mg/dL Urine Occult Blood NEG Urine Nitrite NEG Urine Bilirubin NEG Urine Urobilinogen LESS THAN 2.0 MG/DL Urine Leukocyte Esterase NEG Urine WBC LESS THAN 1 /hpf Urine Squamous Epithelial Cells <1 /hpf Urine Hyaline Casts 4 /lpf Urine Mucus FEW /lpf Microscopic Urinalysis Comment CULT NOT INDICATED MDM Medical Decision Making Medical Screen Exam Complete: Yes Emergency Medical Condition: Yes Differential Diagnosis nephrolithiasis, diverticulitis, Fictitious disorder, Munchhausen syndrome, malingering, anxiety, pancreatitis Narrative Course 47-year-old male presents emergency department concerned of left flank pain radiating to the back that started yesterday. Says the pain is sharp and constant. Worse with laying flat, decreases with standing. Denies nausea, vomiting, diarrhea. Denies chest pain shortness of breath. Vital signs stable. Physical exam findings demonstrate a 47-year-old male anxious resting comfortably in bed. Abdominal exam fairly benign with variable findings. Initially LLQ TTP to light palpation and subsequent deep palpation revealed minimal discomfort. He was rather anticipatory in the exam. No CVA tenderness. No caput medusa, striae, scars. Imaging and labs ordered. After review the EMR, it appears that patient was discharged from this hospital 09/11/2017 after an inpatient stay for suicidal ideations. Patient was discharged with anxiety and mixed personality disorder. In addition, it appears that patient has been evaluated for left chest pain which involved a chest x-ray and CT abdomen pelvis which were unremarkable. 1 L normal saline administered. Labs unremarkable except for a downward-trending lipase at 569. I had a lengthy discussion with this patient regarding his pain and previous labs. I reassured him that based off of H&P, patient unlikely had a true emergency and unlikely had an acute abdomen. Mandatory outpatient consult placed for GI to evaluate for his elevated lipase. Pt to follow up with his PCP. Stay hydrated. Ensure proper nutrition. Diagnosis Primary Impression: Elevated lipase Referrals: [facility] Anthropological Linguist Additional Instructions: Follow up with a web art director as discussed. You have received a mandatory referral. Take all medications as prescribed. Disposition: 01 DISCHARGE HOME Condition: Stable Alfreda Mejía Sep 15, 2017 20:57
[2017-09-15 21:22] LABS: AUTOMATED NEUTROPHIL # 4.8 TH/MM3 (1.8-7.7); BASOPHIL % 0.4 % (0.0-2.0); EOSINOPHIL # 0.1 TH/MM3 (0-0.4); EOSINOPHIL % 1.1 % (0.0-4.0); HEMATOCRIT 41.5 % (39.0-51.0); HEMOGLOBIN 14.2 GM/DL (13.0-17.0); LYMPH % 23.4 % (9.0-44.0); LYMPHOCYTE # 1.7 TH/MM3 (1.0-4.8); MEAN CELL VOLUME 88.3 FL (80.0-100.0); MEAN CORPUSCULAR HEMOGLOBIN 30.3 PG (27.0-34.0); MEAN CORPUSCULAR HGB CONC 34.3 % (32.0-36.0); MEAN PLATELET VOLUME 9.4 FL (7.0-11.0); MONO % 9.6 % (0.0-8.0); MONOCYTE # 0.7 TH/MM3 (0-0.9); NEUT % 65.5 % (16.0-70.0); PLATELET COUNT 243 TH/MM3 (150-450); RED BLOOD COUNT 4.69 MIL/MM3 (4.50-5.90); RED CELL DISTRIBUTION WIDTH 13.2 % (11.6-17.2); WHITE BLOOD COUNT 7.4 TH/MM3 (4.0-11.0)
[2017-09-15 21:30] LABS: BILIRUBIN, URINE NEG (NEG); BLOOD, URINE NEG (NEG); GLUCOSE,URINE NEG (NEG); HYALINE CAST, URINE 4 /lpf (RARE); KETONE, URINE NEG (NEG); MUCUS URINE FEW /lpf (OCC); NITRITE,URINE NEG (NEG); SQUAMOUS EPITHELIAL CELL URINE <1 /hpf (0-5); URINE COLOR YELLOW (YELLW/STRAW); URINE LEUKOCYTE ESTERASE NEG (NEG)
[2017-09-15 21:34] LABS: INTERNATIONAL NORMALIZED RATIO 1.1 RATIO; PROTHROMBIN TIME - PATIENT 10.9 SEC (9.8-11.6)
[2017-09-15 21:48] LABS: ALBUMIN 3.9 GM/DL (3.4-5.0); AST (GOT) 25 U/L (15-37); BLOOD UREA NITROGEN 12 MG/DL (7-18); CALCIUM 10.1 MG/DL (8.5-10.1); CHLORIDE 103 MEQ/L (98-107); CREATININE 0.99 MG/DL (0.60-1.30); GLOMERULAR FILTRATION RATE 80 ML/MIN (>89); GLUCOSE,RANDOM 131 MG/DL (74-106); SODIUM (NA) 139 MEQ/L (136-145)
[2017-09-15 21:49] LABS: ALT (GPT) 51 U/L (12-78)
[2017-09-15 21:51] VITALS: O2SAT 99
[2017-09-15 21:51] LABS: ALKALINE PHOSPHATASE 67 U/L (45-117); TOTAL BILIRUBIN ADULT 0.3 MG/DL (0.2-1.0); TOTAL PROTEIN 7.3 GM/DL (6.4-8.2)
--- NOTE | 2017-09-16 09:15 | EKG ---
Date Performed: 09/15/2017 Time Performed: 20:35:42 PTAGE: 47 years EKG: Sinus rhythm NORMAL ECG PREVIOUS TRACING : 09/10/2017 14.08 DOCTOR: Yosef Ro Interpretating Date/Time 09/16/2017 09:14:52
== END 2017-09-15 22:24 | disposition home or self-care (01) ==
LOC: NEPC 19:05
DX: R74.8 Abnormal levels of other serum enzymes (principal); R10.9 Unspecified abdominal pain; R11.0 Nausea; E11.9 Type 2 diabetes mellitus without complications; I10 Essential (primary) hypertension; F60.89 Other specific personality disorders; F41.9 Anxiety disorder, unspecified; F32.9 Major depressive disorder, single episode, unspecified; E78.00 Pure hypercholesterolemia, unspecified; R56.9 Unspecified convulsions
CPT/HCPCS: 80053; 81001; 83690; 85025; 85610; 85730; 93005; 99284; J7030

== ENCOUNTER 2017-09-24 03:26 | Emergency (ER) | payer SELFPAY ==
[~2017-09-24] VITALS: Ht 180.3 cm; Wt 92.0 kg
[2017-09-24 03:33] VITALS: BP 136/75; PULSE 106; RESP 16; TEMP 98.4; O2SAT 99
[2017-09-24] MEDS ORDERED: AMOX500T PO (04:21)
[2017-09-24 05:00] LABS: AUTOMATED NEUTROPHIL # 7.2 TH/MM3 (1.8-7.7); BASOPHIL # 0.1 TH/MM3 (0-0.2); BASOPHIL % 0.9 % (0.0-2.0); EOSINOPHIL # 0.1 TH/MM3 (0-0.4); EOSINOPHIL % 0.8 % (0.0-4.0); HEMATOCRIT 41.8 % (39.0-51.0); HEMOGLOBIN 14.5 GM/DL (13.0-17.0); LYMPHOCYTE # 2.6 TH/MM3 (1.0-4.8); MEAN CELL VOLUME 89.2 FL (80.0-100.0); MEAN CORPUSCULAR HGB CONC 34.8 % (32.0-36.0); MEAN PLATELET VOLUME 9.3 FL (7.0-11.0); MONO % 6.6 % (0.0-8.0); MONOCYTE # 0.7 TH/MM3 (0-0.9); NEUT % 67.7 % (16.0-70.0); PLATELET COUNT 275 TH/MM3 (150-450); RED BLOOD COUNT 4.69 MIL/MM3 (4.50-5.90); RED CELL DISTRIBUTION WIDTH 13.6 % (11.6-17.2); WHITE BLOOD COUNT 10.7 TH/MM3 (4.0-11.0)
[2017-09-24] MEDS ORDERED: KETOROLAC TROMETHAMINE 30 MG/ML (IVP) VIAL IV PUSH ONE (05:00)
--- NOTE | 2017-09-24 05:00 | PD ---
HPI Chief Complaint: Abdominal Pain Time Seen by Provider: 04:15 Travel History International Travel<30 days: No Contact w/Intl Traveler<30days: No Traveled to known affect area: No History of Present Illness HPI 47yo M with DM, HTN, mixed personality disorder presents to the ED with c/o left flank pain. Pt has had this for a long time, almost every day. He was evaluated here on 09/15/17 for the same complaint. Denies any fever, chest pain, sob, n/v, dysuria, hematuria, testicular pain or penile discharge. PFSH Past Medical History Anxiety: Yes Depression: Yes Cardiac Catheterization: No Cardiovascular Problems: Yes High Cholesterol: Yes Congestive Heart Failure: No Diabetes: Yes Patient Takes Glucophage: Yes Diminished Hearing: No Endocrine: Yes Hypertension: Yes Immune Disorder: No Neurologic: No Psychiatric: Yes Respiratory: No Immunizations Current: Yes Seizures: Yes Thyroid Disease: Yes Triglycerides - High: Yes Tetanus Vaccination: Unknown Past Surgical History Coronary Artery Bypass Graft: No Other Surgery: Yes Social History Alcohol Use: No Tobacco Use: No Substance Use: No Allergies-Medications (Allergen,Severity, Reaction): Coded Allergies: No Known Allergies (Unverified , 09/24/17) Reported Meds & Prescriptions Reported Meds & Active Scripts Active Protonix (Pantoprazole Sodium) 20 Mg Tab 20 Mg PO DAILY 10 Days Tapazole (Methimazole) 5 Mg Tab 5 Mg PO DAILY 1 Days Order is to update med rec only. Patient has supply at home. Metoprolol Tartrate 25 Mg Tab 25 Mg PO DAILY Lisinopril 10 Mg Tab 10 Mg PO DAILY Reported Amoxicillin 500 Mg Tab 500 Mg PO BID Metformin (Metformin HCl) 1,000 Mg Tab 1,000 Mg PO BIDPC Atorvastatin (Atorvastatin Calcium) 10 Mg Tab 10 Mg PO HS Review of Systems Except as stated in HPI: all other systems reviewed are Neg Physical Exam Narrative GENERAL: 47yo M not in distress. SKIN: Focused skin assessment warm/dry. HEAD: Atraumatic. Normocephalic. CARDIOVASCULAR: Regular rate and rhythm. No murmur appreciated. RESPIRATORY: No accessory muscle use. Clear to auscultation. Breath sounds equal bilaterally. GASTROINTESTINAL: Abdomen soft, +Mild ttp left flank. No rebound tenderness or guarding. BACK: No CVA tenderness bilaterally. MUSCULOSKELETAL: No obvious deformities. No clubbing. No cyanosis. No edema. NEUROLOGICAL: Awake and alert. No obvious cranial nerve deficits. Motor grossly within normal limits. Normal speech. PSYCHIATRIC: Appropriate mood and affect; insight and judgment normal. Data Data Last Documented VS Vital Signs Date Time Temp Pulse Resp B/P (MAP) Pulse Ox O2 Delivery O2 Flow Rate FiO2 09/24/17 07:23 09/24/17 06:39 67 16 95 Room Air 09/24/17 03:33 98.4 Orders Orders Complete Blood Count With Diff (09/24/17 04:35) Basic Metabolic Panel (Bmp) (09/24/17 04:35) Lipase (09/24/17 04:35) Urinalysis - C+S If Indicated (09/24/17 05:00) Ketorolac Inj (Toradol Inj) (09/24/17 05:00) Ed Discharge Order (09/24/17 07:12) Mandatory Outpatient Referral (09/24/17 07:12) Labs Laboratory Tests Test 09/24/17 04:30 09/24/17 06:20 White Blood Count 10.7 TH/MM3 Red Blood Count 4.69 MIL/MM3 Hemoglobin 14.5 GM/DL Hematocrit 41.8 % Mean Corpuscular Volume 89.2 FL Mean Corpuscular Hemoglobin 31.0 PG Mean Corpuscular Hemoglobin Concent 34.8 % Red Cell Distribution Width 13.6 % Platelet Count 275 TH/MM3 Mean Platelet Volume 9.3 FL Neutrophils (%) (Auto) 67.7 % Lymphocytes (%) (Auto) 24.0 % Monocytes (%) (Auto) 6.6 % Eosinophils (%) (Auto) 0.8 % Basophils (%) (Auto) 0.9 % Neutrophils # (Auto) 7.2 TH/MM3 Lymphocytes # (Auto) 2.6 TH/MM3 Monocytes # (Auto) 0.7 TH/MM3 Eosinophils # (Auto) 0.1 TH/MM3 Basophils # (Auto) 0.1 TH/MM3 CBC Comment AUTO DIFF Differential Comment AUTO DIFF CONFIRMED Blood Urea Nitrogen 18 MG/DL Creatinine 1.16 MG/DL Random Glucose 104 MG/DL Calcium Level 9.4 MG/DL Sodium Level 137 MEQ/L Potassium Level 3.8 MEQ/L Chloride Level 101 MEQ/L Carbon Dioxide Level 27.9 MEQ/L Anion Gap 8 MEQ/L Estimat Glomerular Filtration Rate 67 ML/MIN Lipase 598 U/L Urine Color YELLOW Urine Turbidity CLEAR Urine pH 5.5 Urine Specific [place] 1.025 Urine Protein TRACE mg/dL Urine Glucose (UA) NEG mg/dL Urine Ketones NEG mg/dL Urine Occult Blood NEG Urine Nitrite NEG Urine Bilirubin NEG Urine Urobilinogen LESS THAN 2.0 MG/DL Urine Leukocyte Esterase NEG Urine RBC LESS THAN 1 /hpf Urine Hyaline Casts 1 /lpf Urine Mucus FEW /lpf Microscopic Urinalysis Comment CULT NOT INDICATED MDM Medical Decision Making Medical Screen Exam Complete: Yes Emergency Medical Condition: Yes Differential Diagnosis Chronic pain vs. malingering Narrative Course 47yo M with chronic abdominal pain. Labs reviewed, no leukocytosis. BMP unremarkable. Lipase is elevated but essentially unchanged from 09/15/17. Pt can negative CT a/p 08/2017. UA negative. Pt will need to follow up with GI. Will do mandatory referral. Pt given toradol with improvement. Pt is lying comfortably in bed. Denies any nausea or vomiting. Pt eating crackles in bed. Return precautions given. Diagnosis Primary Impression: Chronic abdominal pain Patient Instructions: General Instructions Departure Forms: Tests/Procedures Additional Instructions: Please follow up with GI as outpatient. Return to the ED if symptoms worsen. Med/Other Pt SpecificInfo: Prescription(s) given Scripts Pantoprazole (Protonix) 20 Mg Tab 20 MG PO DAILY for Reflux for 10 Days, #10 TAB 0 Refills Prov: Melissa Mukherjee 09/24/17 Disposition: 01 DISCHARGE HOME Condition: Stable MukherjeeDianne prabhakarbebo MALHOTRA Sep 24, 2017 05:00
[2017-09-24 05:20] LABS: BICARBONATE 27.9 MEQ/L (21.0-32.0); CALCIUM 9.4 MG/DL (8.5-10.1); CREATININE 1.16 MG/DL (0.60-1.30)
[2017-09-24 06:21] VITALS: BP 126/72; PULSE 85; RESP 20; O2SAT 98
[2017-09-24 06:39] VITALS: BP 158/77; PULSE 67; RESP 16; O2SAT 95
[2017-09-24 06:41] LABS: BILIRUBIN, URINE NEG (NEG); BLOOD, URINE NEG (NEG); GLUCOSE,URINE NEG (NEG); HYALINE CAST, URINE 1 /lpf (RARE); KETONE, URINE NEG (NEG); MUCUS URINE FEW /lpf (OCC); NITRITE,URINE NEG (NEG); PH, URINE 5.5 (5.0-8.5); URINE COLOR YELLOW (YELLW/STRAW); URINE LEUKOCYTE ESTERASE NEG (NEG)
[2017-09-24] MEDS ORDERED: PANT20 PO (07:12)
== END 2017-09-24 07:34 | disposition home or self-care (01) ==
LOC: NEPC 03:26
DX: R10.9 Unspecified abdominal pain (principal); G89.29 Other chronic pain; E11.9 Type 2 diabetes mellitus without complications; I10 Essential (primary) hypertension; F60.89 Other specific personality disorders; F41.9 Anxiety disorder, unspecified; F32.9 Major depressive disorder, single episode, unspecified; E07.9 Disorder of thyroid, unspecified; E78.2 Mixed hyperlipidemia
CPT/HCPCS: 80048; 81001; 83690; 85025; 96374; 99284; J1885

== ENCOUNTER 2017-12-08 12:03 | Emergency (ER) | payer SELFPAY ==
[~2017-12-08] VITALS: Ht 180.3 cm; Wt 86.8 kg
[~2017-12-08 12:03] MED LIST changes: +AMOX500T PO; -CARB200T PO; -CLAR10TA7 PO; -CLIN300C5 PO; -FAMO20TA2 PO; -IBUP-232 PO; -MIRTA15 PO; +PANT20 PO; -PERI0.126 SWISH-SPIT; -[UNRECOGNIZED DRUG - OTHER] PO
[2017-12-08 12:05] VITALS: BP 150/77; PULSE 119; RESP 18; TEMP 98.3; O2SAT 99
[2017-12-08] MEDS ORDERED: METH5TAB4 PO (12:55)
[2017-12-08] MEDS ORDERED: OMEP20TA93 PO (12:55)
[2017-12-08 13:06] LABS: AUTOMATED NEUTROPHIL # 6.4 TH/MM3 (1.8-7.7); BASOPHIL # 0.1 TH/MM3 (0-0.2); BASOPHIL % 0.9 % (0.0-2.0); EOSINOPHIL # 0.1 TH/MM3 (0-0.4); EOSINOPHIL % 0.8 % (0.0-4.0); HEMATOCRIT 47.4 % (39.0-51.0); HEMOGLOBIN 16.1 GM/DL (13.0-17.0); LYMPH % 17.1 % (9.0-44.0); LYMPHOCYTE # 1.5 TH/MM3 (1.0-4.8); MEAN CELL VOLUME 89.8 FL (80.0-100.0); MEAN CORPUSCULAR HEMOGLOBIN 30.5 PG (27.0-34.0); MEAN CORPUSCULAR HGB CONC 33.9 % (32.0-36.0); MEAN PLATELET VOLUME 9.8 FL (7.0-11.0); MONO % 6.4 % (0.0-8.0); MONOCYTE # 0.6 TH/MM3 (0-0.9); NEUT % 74.8 % (16.0-70.0); PLATELET COUNT 259 TH/MM3 (150-450); RED BLOOD COUNT 5.28 MIL/MM3 (4.50-5.90); RED CELL DISTRIBUTION WIDTH 12.9 % (11.6-17.2); WHITE BLOOD COUNT 8.6 TH/MM3 (4.0-11.0)
[2017-12-08 13:33] LABS: BICARBONATE 25.3 MEQ/L (21.0-32.0); CALCIUM 9.4 MG/DL (8.5-10.1); CREATININE 1.34 MG/DL (0.60-1.30)
--- NOTE | 2017-12-08 13:54 | PD ---
HPI Chief Complaint: General Weakness Time Seen by Provider: 12:20 Travel History International Travel<30 days: No Contact w/Intl Traveler<30days: No Traveled to known affect area: No History of Present Illness HPI Is a 47-year-old man presents to the emergency department complaining of feeling weak and tired ongoing for couple of months. He states he found it recently was diabetic and radically changed his diet. Since then he has felt more weak he follows with an outpatient doctor. He is known elevated lipase and abnormal stools. He supposed to follow-up with GI doctor but does not have any insurance. He has not arranged yet. Otherwise has been doing well. History Past Medical History Narrative Medical Diabetes Hypertension Mixed personality disorder Hyperthyroidism Social History Alcohol Use: No Tobacco Use: No Allergies-Medications (Allergen,Severity, Reaction): Coded Allergies: No Known Allergies (Unverified , 12/08/17) Reported Meds & Prescriptions Reported Meds & Active Scripts Active Metoprolol Tartrate 25 Mg Tab 25 Mg PO DAILY Lisinopril 10 Mg Tab 10 Mg PO DAILY Reported Methimazole 5 Mg Tab 5 Mg PO DAILY Omeprazole 20 Mg Tab 20 Mg PO DAILY Metformin (Metformin HCl) 1,000 Mg Tab 1,000 Mg PO BIDPC Atorvastatin (Atorvastatin Calcium) 10 Mg Tab 10 Mg PO HS Review of Systems Except as stated in HPI: all other systems reviewed are Neg Physical Exam Narrative GENERAL: Well-appearing 47-year-old man, no acute distress per SKIN: Focused skin assessment warm/dry. HEAD: Atraumatic. Normocephalic. EYES: Pupils equal and round. No scleral icterus. No injection or drainage. ENT: No nasal bleeding or discharge. Mucous membranes pink and moist. NECK: Trachea midline. No JVD. CARDIOVASCULAR: Regular rate and rhythm. No murmur appreciated. RESPIRATORY: No accessory muscle use. Clear to auscultation. Breath sounds equal bilaterally. GASTROINTESTINAL: Abdomen soft, non-tender, nondistended. Hepatic and splenic margins not palpable. MUSCULOSKELETAL: No obvious deformities. No edema. NEUROLOGICAL: Awake and alert. No obvious cranial nerve deficits. Motor grossly within normal limits. Normal speech. PSYCHIATRIC: Appropriate mood and affect; insight and judgment normal. Data Data Last Documented VS Vital Signs Date Time Temp Pulse Resp B/P (MAP) Pulse Ox O2 Delivery O2 Flow Rate FiO2 12/08/17 12:05 98.3 119 18 150/77 (101) 99 Orders Orders Complete Blood Count With Diff (12/08/17 12:27) Basic Metabolic Panel (Bmp) (12/08/17 12:27) Thyroid Stimulating Hormone (12/08/17 12:31) Labs Laboratory Tests Test 12/08/17 12:41 White Blood Count 8.6 TH/MM3 Red Blood Count 5.28 MIL/MM3 Hemoglobin 16.1 GM/DL Hematocrit 47.4 % Mean Corpuscular Volume 89.8 FL Mean Corpuscular Hemoglobin 30.5 PG Mean Corpuscular Hemoglobin Concent 33.9 % Red Cell Distribution Width 12.9 % Platelet Count 259 TH/MM3 Mean Platelet Volume 9.8 FL Neutrophils (%) (Auto) 74.8 % Lymphocytes (%) (Auto) 17.1 % Monocytes (%) (Auto) 6.4 % Eosinophils (%) (Auto) 0.8 % Basophils (%) (Auto) 0.9 % Neutrophils # (Auto) 6.4 TH/MM3 Lymphocytes # (Auto) 1.5 TH/MM3 Monocytes # (Auto) 0.6 TH/MM3 Eosinophils # (Auto) 0.1 TH/MM3 Basophils # (Auto) 0.1 TH/MM3 CBC Comment DIFF FINAL Differential Comment Blood Urea Nitrogen 16 MG/DL Creatinine 1.34 MG/DL Random Glucose 168 MG/DL Calcium Level 9.4 MG/DL Sodium Level 140 MEQ/L Potassium Level 3.6 MEQ/L Chloride Level 103 MEQ/L Carbon Dioxide Level 25.3 MEQ/L Anion Gap 12 MEQ/L Estimat Glomerular Filtration Rate 57 ML/MIN Thyroid Stimulating Hormone 3rd Gen 2.140 uIU/ML [facility] Medical Decision Making Medical Screen Exam Complete: Yes Emergency Medical Condition: Yes Interpretation(s) LABS: CBC is unremarkable CMP is overall unremarkable. Mild elevated creatinine. TSH is normal. Differential Diagnosis Anxiety, abnormal GI problem, pancreatic exocrine dysfunction, malignancy, other Narrative Course Medical decision making 47-year-old male presents with vague symptoms of fatigue and lethargy, needs outpatient follow-up with GI, is being seen through [facility], recommend outpatient follow-up. Diagnosis Primary Impression: Fatigue Patient Instructions: General Instructions Additional Instructions: Follow-up with your primary doctor as planned for further evaluation of your fatigue lethargy and abnormal stools. Disposition: DISCHARGE HOME Condition: Stable Yosef Ho MD December 08, 2017 13:54
== END 2017-12-08 14:07 | disposition home or self-care (01) ==
LOC: NEPD 12:03
DX: R53.83 Other fatigue (principal); E11.9 Type 2 diabetes mellitus without complications; I10 Essential (primary) hypertension; Z79.84 Long term (current) use of oral hypoglycemic drugs
CPT/HCPCS: 80048; 84443; 85025; 99283

== ENCOUNTER 2017-12-10 12:48 | Emergency (ER) | payer SELFPAY ==
[~2017-12-10] VITALS: Ht 180.3 cm; Wt 85.0 kg
[~2017-12-10 12:48] MED LIST changes: -AMOX500T PO; -METH5 PO; +METH5TAB4 PO; +OMEP20TA93 PO; -PANT20 PO
[2017-12-10 13:14] VITALS: BP 131/62; PULSE 101; RESP 16; TEMP 98.7; O2SAT 98
[2017-12-10] MEDS ORDERED: KETOROLAC TROMETHAMINE 30 MG/ML (IVP) VIAL IV PUSH ONE (14:00)
[2017-12-10] MEDS ORDERED: SODIUM CHLOR 0.9% 1000 ML INJ 1,000 ML IV ONE (14:00)
[2017-12-10 14:21] LABS: AUTOMATED NEUTROPHIL # 4.7 TH/MM3 (1.8-7.7); BASOPHIL # 0.1 TH/MM3 (0-0.2); BASOPHIL % 0.8 % (0.0-2.0); EOSINOPHIL # 0.1 TH/MM3 (0-0.4); EOSINOPHIL % 1.8 % (0.0-4.0); HEMATOCRIT 44.2 % (39.0-51.0); HEMOGLOBIN 15.2 GM/DL (13.0-17.0); LYMPH % 24.6 % (9.0-44.0); LYMPHOCYTE # 1.8 TH/MM3 (1.0-4.8); MEAN CELL VOLUME 89.9 FL (80.0-100.0); MEAN CORPUSCULAR HEMOGLOBIN 30.9 PG (27.0-34.0); MEAN CORPUSCULAR HGB CONC 34.4 % (32.0-36.0); MEAN PLATELET VOLUME 9.2 FL (7.0-11.0); MONO % 7.3 % (0.0-8.0); MONOCYTE # 0.5 TH/MM3 (0-0.9); NEUT % 65.5 % (16.0-70.0); PLATELET COUNT 245 TH/MM3 (150-450); RED BLOOD COUNT 4.92 MIL/MM3 (4.50-5.90); RED CELL DISTRIBUTION WIDTH 12.9 % (11.6-17.2); WHITE BLOOD COUNT 7.2 TH/MM3 (4.0-11.0)
[2017-12-10 14:43] LABS: ALBUMIN 3.8 GM/DL (3.4-5.0); ALKALINE PHOSPHATASE 68 U/L (45-117); ALT (GPT) 30 U/L (12-78); AST (GOT) 18 U/L (15-37); BICARBONATE 28.1 MEQ/L (21.0-32.0); BLOOD UREA NITROGEN 20 MG/DL (7-18); CALCIUM 8.9 MG/DL (8.5-10.1); CHLORIDE 104 MEQ/L (98-107); CREATININE 1.25 MG/DL (0.60-1.30); GLOMERULAR FILTRATION RATE 61 ML/MIN (>89); GLUCOSE,RANDOM 123 MG/DL (74-106); SODIUM (NA) 141 MEQ/L (136-145); TOTAL BILIRUBIN ADULT 0.4 MG/DL (0.2-1.0); TOTAL PROTEIN 7.6 GM/DL (6.4-8.2)
[2017-12-10 15:10] VITALS: RESP 18
--- NOTE | 2017-12-10 16:13 | PD ---
HPI Chief Complaint: General Weakness Time Seen by Provider: 13:43 Travel History International Travel<30 days: No Contact w/Intl Traveler<30days: No Traveled to known affect area: No History of Present Illness HPI Patient is a 47-year-old male who comes in complaining of pain to his extremities. He was here 2 days ago for the same thing. He says he feels like he has been working out a lot he cannot use his arms. He denies any pain to his neck or his back. He denies fever chills. He is very anxious about something that could be wrong with him. He was recently diagnosed with diabetes and has been trying to work out more and lose weight. He denies any chest pain shortness of breath. He denies headache. Severity is mild. PFSH Past Medical History Anxiety: Yes Depression: Yes Cardiac Catheterization: No Cardiovascular Problems: Yes (BP) High Cholesterol: Yes Congestive Heart Failure: No Diabetes: Yes Patient Takes Glucophage: Yes Diminished Hearing: No Endocrine: Yes Hypertension: Yes Immune Disorder: No Neurologic: No Psychiatric: Yes Respiratory: No Immunizations Current: Yes Seizures: Yes Thyroid Disease: Yes Triglycerides - High: Yes Tetanus Vaccination: Unknown Influenza Vaccination: Yes Past Surgical History Coronary Artery Bypass Graft: No Other Surgery: Yes Social History Alcohol Use: No Tobacco Use: No (quit 10 years ago ) Substance Use: No Allergies-Medications (Allergen,Severity, Reaction): Coded Allergies: No Known Allergies (Unverified , 12/10/17) Reported Meds & Prescriptions Reported Meds & Active Scripts Active Metoprolol Tartrate 25 Mg Tab 25 Mg PO DAILY Lisinopril 10 Mg Tab 10 Mg PO DAILY Reported Methimazole 5 Mg Tab 5 Mg PO DAILY Omeprazole 20 Mg Tab 20 Mg PO DAILY Metformin (Metformin HCl) 1,000 Mg Tab 1,000 Mg PO BIDPC Atorvastatin (Atorvastatin Calcium) 10 Mg Tab 10 Mg PO HS Review of Systems Except as stated in HPI: all other systems reviewed are Neg General / Constitutional: No: Fever, Chills HENT: No: Headaches, Lightheadedness Cardiovascular: No: Chest Pain or Discomfort Respiratory: No: Shortness of Breath Gastrointestinal: No: Nausea, Vomiting Musculoskeletal: Positive: Myalgias Skin: No Rash, No Change in Pigmentation Neurologic: No: Weakness, Dizziness Physical Exam Narrative GENERAL: Awake and alert, no acute distress. SKIN: Focused skin assessment warm/dry. No wounds or rashes. HEAD: Atraumatic. Normocephalic. EYES: Pupils equal and round. No scleral icterus. ENT: No nasal bleeding or discharge. Mucous membranes pink and moist. NECK: Trachea midline. No JVD. CARDIOVASCULAR: Regular rate and rhythm. No murmur appreciated. RESPIRATORY: No accessory muscle use. Clear to auscultation. Breath sounds equal bilaterally. GASTROINTESTINAL: Abdomen soft, non-tender, nondistended. MUSCULOSKELETAL: No obvious deformities. No clubbing. No cyanosis. No edema. No tenderness to palpation of the cervical spine, thoracic spine or lumbar spine. NEUROLOGICAL: Awake and alert. No obvious cranial nerve deficits. Motor grossly within normal limits. Normal speech. Sensation intact. PSYCHIATRIC: Appropriate mood and affect; insight and judgment normal. Data Data Last Documented VS Vital Signs Date Time Temp Pulse Resp B/P (MAP) Pulse Ox O2 Delivery O2 Flow Rate FiO2 12/10/17 15:10 18 12/10/17 14:11 Room Air 12/10/17 13:14 98.7 101 131/62 (85) 98 Orders Orders Iv Access Insert/Monitor (12/10/17 13:56) Complete Blood Count With Diff (12/10/17 13:56) Comprehensive Metabolic Panel (12/10/17 13:56) Creatine Kinase (Cpk) (12/10/17 13:56) Lipase (12/10/17 13:56) Sodium Chlor 0.9% 1000 Ml Inj (Ns 1000 M (12/10/17 14:00) Ketorolac Inj (Toradol Inj) (12/10/17 14:00) Ed Discharge Order (12/10/17 16:13) Labs Laboratory Tests Test 12/10/17 14:10 White Blood Count 7.2 TH/MM3 Red Blood Count 4.92 MIL/MM3 Hemoglobin 15.2 GM/DL Hematocrit 44.2 % Mean Corpuscular Volume 89.9 FL Mean Corpuscular Hemoglobin 30.9 PG Mean Corpuscular Hemoglobin Concent 34.4 % Red Cell Distribution Width 12.9 % Platelet Count 245 TH/MM3 Mean Platelet Volume 9.2 FL Neutrophils (%) (Auto) 65.5 % Lymphocytes (%) (Auto) 24.6 % Monocytes (%) (Auto) 7.3 % Eosinophils (%) (Auto) 1.8 % Basophils (%) (Auto) 0.8 % Neutrophils # (Auto) 4.7 TH/MM3 Lymphocytes # (Auto) 1.8 TH/MM3 Monocytes # (Auto) 0.5 TH/MM3 Eosinophils # (Auto) 0.1 TH/MM3 Basophils # (Auto) 0.1 TH/MM3 CBC Comment DIFF FINAL Differential Comment Blood Urea Nitrogen 20 MG/DL Creatinine 1.25 MG/DL Random Glucose 123 MG/DL Total Protein 7.6 GM/DL Albumin 3.8 GM/DL Calcium Level 8.9 MG/DL Alkaline Phosphatase 68 U/L Aspartate Amino Transf (AST/SGOT) 18 U/L Alanine Aminotransferase (ALT/SGPT) 30 U/L Total Bilirubin 0.4 MG/DL Sodium Level 141 MEQ/L Potassium Level 3.9 MEQ/L Chloride Level 104 MEQ/L Carbon Dioxide Level 28.1 MEQ/L Anion Gap 9 MEQ/L Estimat Glomerular Filtration Rate 61 ML/MIN Total Creatine Kinase 63 U/L Lipase 317 U/L MDM Medical Decision Making Medical Screen Exam Complete: Yes Emergency Medical Condition: Yes Medical Record Reviewed: Yes Differential Diagnosis Electrolyte abnormality versus dehydration versus rhabdo Narrative Course Patient is a 47-year-old male comes in complaining of pain to his extremities. Exam shows no acute abnormalities. IV established, labs sent. Labs show no acute abnormalities. CK is within normal limits. Patient given IV fluids and Toradol. We had a long discussion about his elements. Patient was reassured. This has made him feel better. He is advised to avoid weight training for a few days to see if this helps with his soreness. Advised follow-up with his primary doctor. Advised return to the ED as needed for any worsening symptoms. Diagnosis Primary Impression: Myalgia Patient Instructions: General Instructions, Musculoskeletal Pain (ED) Additional Instructions: Drink plenty of fluids. Follow-up with your doctor. Take Advil as needed for pain. Return to the ED as needed for any worsening symptoms. Disposition: 01 DISCHARGE HOME Condition: Stable Amrita Benitez MD December 10, 2017 16:13
== END 2017-12-10 16:22 | disposition home or self-care (01) ==
LOC: NEPE 12:48
DX: M79.1 Myalgia (principal); E11.9 Type 2 diabetes mellitus without complications; F41.9 Anxiety disorder, unspecified; F32.9 Major depressive disorder, single episode, unspecified; E78.00 Pure hypercholesterolemia, unspecified; I10 Essential (primary) hypertension; E07.9 Disorder of thyroid, unspecified; Z87.891 Personal history of nicotine dependence
CPT/HCPCS: 80053; 82550; 83690; 85025; 96361; 96374; 99284; J1885; J7030

== ENCOUNTER 2017-12-17 05:36 | Emergency (ER) | payer SELFPAY ==
[~2017-12-17] VITALS: Ht 180.3 cm; Wt 88.5 kg
[2017-12-17 05:41] VITALS: BP 130/69; PULSE 86; RESP 16; TEMP 98.5; O2SAT 99
--- NOTE | 2017-12-17 06:51 | PD ---
HPI Chief Complaint: Abdominal Pain Time Seen by Provider: 06:00 Travel History International Travel<30 days: No Contact w/Intl Traveler<30days: No Traveled to known affect area: No History of Present Illness HPI The patient is a 47 year old male who presents to the [facility] emergency department with a history of right-sided lateral abdominal pain that he reports began at approximately 1 AM. He reports that it woke him up from sound sleep. He reports that he does move around in his sleep, however he is unsure whether he was moving when he reports that since then he has noticed that the pain only occurs when he tries to lie flat, bend, or reach for something. He reports that he has been regularly exercising since he has been diagnosed with diabetes. He denies having any abdominal pain to palpation. He denies having any associated nausea, reports that he last moved his bowels earlier today. He denies having any blood in his stool or black or tarry stools. He denies having any known fevers or chills, cough or congestion. He denies having any dysuria, hematuria, urinary urgency, or frequency. His primary care physician is Dr. Cooper. He denies having any trauma to the area. He denies having any rashes. On review of systems otherwise, he denies neck pain, chest pain, shortness of breath, or neurologic symptoms. [facility] Past Medical History Narrative Medical The patient's past medical history is significant for hypertension, diabetes mellitus, hyperlipidemia, acid reflux, hyperthyroid disorder, anxiety disorder, and personality disorder. Anxiety: Yes Depression: Yes Cardiac Catheterization: No Cardiovascular Problems: Yes (HTN) High Cholesterol: Yes Congestive Heart Failure: No Diabetes: Yes (Metformin) Patient Takes Glucophage: Yes Diminished Hearing: No Endocrine: Yes Hypertension: Yes Immune Disorder: No Neurologic: No Psychiatric: Yes Respiratory: No Immunizations Current: Yes Seizures: Yes Thyroid Disease: Yes Triglycerides - High: Yes Influenza Vaccination: Yes Past Surgical History Narrative Surgical The patient's past surgical history is significant for a right rotator cuff surgery. Coronary Artery Bypass Graft: No Other Surgery: Yes Social History Alcohol Use: No Tobacco Use: No (quit 10 years ago ) Substance Use: No Allergies-Medications (Allergen,Severity, Reaction): Coded Allergies: No Known Allergies (Unverified , 12/10/17) Reported Meds & Prescriptions Reported Meds & Active Scripts Active Metoprolol Tartrate 25 Mg Tab 25 Mg PO DAILY Lisinopril 10 Mg Tab 10 Mg PO DAILY Reported Methimazole 5 Mg Tab 5 Mg PO DAILY Omeprazole 20 Mg Tab 20 Mg PO DAILY Metformin (Metformin HCl) 1,000 Mg Tab 1,000 Mg PO BIDPC Atorvastatin (Atorvastatin Calcium) 10 Mg Tab 10 Mg PO HS Review of Systems Except as stated in HPI: all other systems reviewed are Neg General / Constitutional: No: Fever Eyes: No: Visual changes HENT: No: Headaches Cardiovascular: No: Chest Pain or Discomfort Respiratory: No: Shortness of Breath Gastrointestinal: Positive: Abdominal Pain, No: Nausea, Vomiting, Diarrhea, Hematochezia, Changes in Bowel Habits, Indigestion, Loss of Appetite Genitourinary: Positive: Flank Pain, No: Urgency, Frequency, Dysuria, Hematuria Musculoskeletal: No: Pain Skin: No Rash Neurologic: No: Weakness, Focal Abnormalities, Change in Mentation, Slurred Speech, Sensory Disturbance Psychiatric: No: Depression Endocrine: No: Polydipsia Hematologic/Lymphatic: No: Easy Bruising Physical Exam Narrative General: The patient is a well-developed well-nourished male in no acute distress. Head and Neck exam: Head is normocephalic atraumatic. Eyes: EOMI, pupils are equal round and reactive to light. Nose: Midline septum with pink mucous membranes Mouth: Dentition unremarkable. Moist mucus membranes. Posterior oropharynx is not erythematous. No tonsillar hypertrophy. Uvula midline. Airway patent. Neck: No palpable lymphadenopathy. No nuchal rigidity. No thyromegaly. Cardiovascular: Regular rate and rhythm without murmurs, gallops, or rubs. No pulse deficit to the extremities on simultaneous auscultation and palpation of his radial artery. Lungs: Clear to auscultation bilaterally. No wheezes, rhonchi, or rales. Abdomen: Soft, without tenderness to palpation in all 4 quadrants of the abdomen. No guarding, rebound, or rigidity. Normal bowel sounds are audible. No tenderness on palpation of McBurney's point. Negative Brewer sign. Extremities: No clubbing, cyanosis, or edema. 2+ pulses in all 4 extremities. No calf tenderness on palpation. Back: No spinous process tenderness to palpation. No costovertebral angle tenderness to palpation. Neurologic Exam: Grossly nonfocal. Skin Exam: No rash noted. Intact skin that is warm and dry. Data Data Last Documented VS Vital Signs Date Time Temp Pulse Resp B/P (MAP) Pulse Ox O2 Delivery O2 Flow Rate FiO2 12/17/17 07:15 18 12/17/17 07:15 64 108/62 (77) 95 Room Air 12/17/17 05:41 98.5 Orders Orders Urinalysis - C+S If Indicated (12/17/17 06:17) Acetaminophen (Tylenol) (12/17/17 07:30) Labs Laboratory Tests Test 12/17/17 06:31 Urine Color YELLOW Urine Turbidity CLEAR Urine pH 6.0 Urine Specific [place] 1.016 Urine Protein NEG mg/dL Urine Glucose (UA) NEG mg/dL Urine Ketones NEG mg/dL Urine Occult Blood NEG Urine Nitrite NEG Urine Bilirubin NEG Urine Urobilinogen LESS THAN 2.0 MG/DL Urine Leukocyte Esterase NEG Urine RBC LESS THAN 1 /hpf Urine WBC LESS THAN 1 /hpf Microscopic Urinalysis Comment CULT NOT INDICATED MDM Medical Decision Making Medical Screen Exam Complete: Yes Emergency Medical Condition: Yes Medical Record Reviewed: Yes Differential Diagnosis Musculoskeletal strain, versus kidney stone, versus pyelonephritis Narrative Course During the course of the patient's emergency department visit, the patient's history, examination, and differential diagnosis were reviewed with the patient. The patient has no pain on palpation during his examination. The patient only has pain with certain movements suggestive of this being musculoskeletal in origin, however as the patient points to the pain as being located in the right flank/right lateral abdomen, a urine will be sent for analysis to evaluate for underlying hematuria. The patient was initially provided Tylenol for pain. The patient's laboratory studies were reviewed and remarkable for a urinalysis that is unremarkable, no signs of infection or microscopic hematuria. The patient's symptoms are most consistent with musculoskeletal origin for his pain. The patient will be discharged home with instructions to do light activity, avoid any exercises that aggravate his discomfort until the discomfort completely resolves. The patient is resting comfortably and feels better, is alert and in no distress. The patient's results and examination findings were discussed with the patient. The repeat examination is unremarkable and benign. The history, exam, diagnostic testing, and current condition do not suggest any significant pathology to warrant further testing, continued ED treatment, admission, or surgical evaluation at this point. The vital signs have been stable. The patient does not have uncontrollable pain, intractable vomiting, or other significant symptoms. The patient's condition is stable and appropriate for discharge. The patient will pursue further outpatient evaluation with a primary care physician or other designated or consulting physician as indicated in the discharge instructions. The patient is instructed to report back to the emergency department immediately for reexamination in the mean time if he/ she develops any new or worsening signs or symptoms. The patient expressed understanding and was agreeable with this plan. Diagnosis Primary Impression: Right flank pain Referrals: Primary Care Physician 3 days Patient Instructions: Flank Pain (ED), General Instructions, Muscle Strain (ED) Med/Other Pt SpecificInfo: No Change to Meds Disposition: 01 DISCHARGE HOME Condition: Stable Charla Love MD Dec 17, 2017 06:51
[2017-12-17 07:05] LABS: BILIRUBIN, URINE NEG (NEG); BLOOD, URINE NEG (NEG); GLUCOSE,URINE NEG (NEG); KETONE, URINE NEG (NEG); NITRITE,URINE NEG (NEG); URINE COLOR YELLOW (YELLW/STRAW); URINE LEUKOCYTE ESTERASE NEG (NEG)
[2017-12-17 07:15] VITALS: BP 108/62; PULSE 64; RESP 18; O2SAT 95
[2017-12-17] MEDS ORDERED: ACETAMINOPHEN 325 MG TAB PO ONE (07:30)
[2017-12-17 07:49] VITALS: BP 108/62
[2017-12-17] MEDS ORDERED: IBUPROFEN 400 MG TAB PO ONE (08:00)
== END 2017-12-17 07:54 | disposition home or self-care (01) ==
LOC: NEPC 05:36
DX: R10.9 Unspecified abdominal pain (principal); E11.9 Type 2 diabetes mellitus without complications; E78.00 Pure hypercholesterolemia, unspecified; I10 Essential (primary) hypertension; Z79.84 Long term (current) use of oral hypoglycemic drugs; Z87.891 Personal history of nicotine dependence
CPT/HCPCS: 81001; 99283

== ENCOUNTER 2017-12-25 14:28 | Emergency (ER) | payer SELFPAY ==
[~2017-12-25] VITALS: Ht 180.3 cm; Wt 86.0 kg
[2017-12-25 14:46] VITALS: BP 134/72; PULSE 98; RESP 17; TEMP 98.9; O2SAT 100
--- NOTE | 2017-12-25 15:56 | PD ---
HPI Chief Complaint: Medical Clearance Time Seen by Provider: 15:27 Travel History International Travel<30 days: No Contact w/Intl Traveler<30days: No Traveled to known affect area: No History of Present Illness HPI 47-year-old male presents to the emergency department with complaint of bilateral hand, bilateral forearm, bilateral lower leg, bilateral foot pain that has been constant for the past 3-4 weeks. He has been here 3 other times for the same complaint and wants to know what is going on with him. He has also gone to [facility] in a says the doctor patted him on the shoulder and said everything looked fine. He says his arms and his legs are killing him. He is concerned because he is losing weight. Says the pain is constant. Rates pain 8/10. Has tried taking ibuprofen with good relief of the pain, otherwise says he has been taking it recently because he does not want to "mask" the pain. Describes it as a burning sensation. No known aggravating factors. Denies fever, nausea, vomiting, abdominal pain, chest pain, shortness of breath. Primary care provider is Dr. Cooper [facility]. No known allergies. History of diabetes. Has no other medical complaints. No other modifying factors or associated signs and symptoms. History Social History Alcohol Use: No Tobacco Use: No (quit 10 years ago ) Allergies-Medications (Allergen,Severity, Reaction): Coded Allergies: No Known Allergies (Unverified , 12/25/17) Reported Meds & Prescriptions Reported Meds & Active Scripts Active Metoprolol Tartrate 25 Mg Tab 25 Mg PO DAILY Lisinopril 10 Mg Tab 10 Mg PO DAILY Reported Methimazole 5 Mg Tab 5 Mg PO DAILY Omeprazole 20 Mg Tab 20 Mg PO DAILY Metformin (Metformin HCl) 1,000 Mg Tab 1,000 Mg PO BIDPC Atorvastatin (Atorvastatin Calcium) 10 Mg Tab 10 Mg PO HS Review of Systems Except as stated in HPI: all other systems reviewed are Neg Physical Exam Narrative GENERAL: Well-nourished, well-developed male patient, in no acute distress SKIN: Warm and dry. HEAD: Atraumatic. Normocephalic. EYES: Pupils equal and round. No scleral icterus. No injection or drainage. ENT: Mucosa pink and moist. Airway patent. NECK: Trachea midline. CARDIOVASCULAR: Regular rate and rhythm. No murmur appreciated. RESPIRATORY: No accessory muscle use. Breath sounds clear and equal bilaterally. No retractions or tachypnea. GASTROINTESTINAL: Rounded. MUSCULOSKELETAL: Bilateral upper extremities are supple and non-tense without erythema or edema; bilateral nailer machine strength equal. Patient ambulatory in the room with a normal gait. Bilateral lower extremities are supple and non-tense and without erythema or edema. No obvious deformities. No clubbing. No cyanosis. No edema. NEUROLOGICAL: Awake and alert. Oriented 3. No obvious cranial nerve deficits. Motor grossly within normal limits. Normal speech. PSYCHIATRIC: Appropriate mood and affect; insight and judgment normal. Data Data Last Documented VS Vital Signs Date Time Temp Pulse Resp B/P (MAP) Pulse Ox O2 Delivery O2 Flow Rate FiO2 12/25/17 14:46 98.9 98 17 134/72 (92) 100 MDM Medical Screen Exam Complete: Yes Emergency Medical Condition: No Differential Diagnosis Peripheral neuropathy Narrative Course 47-year-old male with continued complaint of bilateral upper and lower extremity pain that has been constant for the past 3-4 weeks. He was seen here on December 08, December 10, December 17 for the same complaint and he had CBC, BMP, TSH, urinalysis which were all unremarkable. He is diabetic and I discussed possibility of diabetic peripheral neuropathy and the need for the patient to follow-up with his primary care provider. He is also concerned about the fact that he thinks he is losing weight. I did review his weights since he was seen here on December 08 and they have been consistent without any substantial weight loss. Patient verbalized understanding and agreement with treatment plan. Vital signs are stable and the patient is stable for outpatient follow-up and treatment. The patient has no urgent or emergent medical complaints. There is no emergent or urgent medical need at this time. I instructed the patient to follow up with their primary care provider. A medical screening exam was performed: At the time of evaluation the presenting medical condition was determined not to be of an emergent nature. The patient was given the option of receiving additional care, but declined. Patient was given options for additional community resources from which to obtain care. The Patient Has Been advised to seek medical attention for their presenting complaint. The patient has been advised to return to the ER at any time if an emergent condition develops. Primary Impression: Encounter for medical screening examination Condition: Stable Jessie Joe Dec 25, 2017 15:56
== END 2017-12-25 15:59 | disposition left against medical advice (07) ==
LOC: NEPK 14:28
DX: M79.671 Pain in right foot (principal)
CPT/HCPCS: 99281